=== PATIENT | male | born 1935 | race African-American/Black ===

== ENCOUNTER 2016-12-27 16:08 | Inpatient (IN) ==
[2016-12-27] MEDS ORDERED: SODIUM CHLORIDE 0.9% 500 ML IV STA (16:27)
--- NOTE | 2016-12-27 16:41 | Emergency Department Note ---
Miguel Ángel Oropeza Brittany, am scribing for, and in the presence of, Geo Rucker MD 16:37. Alka Oropeza James D, MD, personally performed the services described in this documentation, ascribed by Genoveva Del Rosario in my presence, and it is both accurate and complete [id number] . Arrival - Arrival Chief Complaint: Neuro Stated Complaint: left arm weakness and slurred speech ED Nursing Triage Note: pt complained of left arm weakness and slurred speech x 1 week. pt sent by ct nurse practictioner for concerns of stroke symptoms from last week. Mode of Arrival: Stretcher Limitations: No Limitations Source: Patient, Family Time Seen by Provider: 12/27/16 16:27 - History of Present Illness HPI Narrative: Patient is a 81 y/o male presenting to the ED by EMS with c/o weakness and slurred speech with an onset of a week. Patient's daughter states that his weakness is generalized but worse in the left arm. states that patient used to be able to transfer from bed to chair with ease, but for the past 4-5 days he has been having a lot of difficulty and needs assistance. reports that s/p second amputation he has not been able to ambulate with prosthetic device. Patient is assisted by , daughter, and aides. Patient notes that he is seen by PCP Vitor and Melting Operator Vitor. He reports that he does have a Defibrillator, but this has not fired recently. notes that patient is usually seen by the CT, where his amputations were performed. Patient denies any shortness of breath, chest pain, or urinary symptoms. 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 Patient has a past medical history of CHF, HTN, IDDM, Dyslipidemia, and Amputation's (Left BKA, Right AKA.) No other complaint/pain in the ED. Allergies/Adverse Reactions: Allergies Allergy/AdvReac Type Severity Reaction Status Date / Time No Known Allergies Allergy Unverified 03/27/15 08:06 Home Medications: Home Medications Medication Instructions Recorded Confirmed Type Aspirin [Ecotrin] 81 mg PO DAILY 03/27/15 11/22/15 History Atorvastatin [Lipitor] 80 mg PO BEDTIME 03/27/15 11/22/15 History Cetirizine HCl [ZyrTEC Cap] 10 mg PO DAILY 03/27/15 11/22/15 History Enalapril Tab [Vasotec Tab] 5 mg PO BID 03/27/15 11/22/15 History Furosemide Tab [Lasix Tab] 80 mg PO BID DIURETIC 03/27/15 11/22/15 History Gabapentin Cap/Tab [Neurontin 300 mg PO BID 03/27/15 11/22/15 History Cap/Tab] Insulin Glargine [Lantus] 15 unit SUBCUT BEDTIME 03/27/15 11/22/15 History LORazepam TAB [Ativan Tab] 0.5 mg PO TID PRN 03/27/15 11/22/15 History Magnesium Oxide 400 mg PO BEDTIME 03/27/15 11/22/15 History Magnesium Oxide 800 mg PO DAILY W/BREAKFAST 03/27/15 11/22/15 History Metoprolol Succinate 100 mg PO BEDTIME 03/27/15 11/22/15 History [place]-3 Fatty Acids/Fish Oil [Fish 1 each PO DAILY 03/27/15 11/22/15 History Oil 1,000 mg Softgel] Omeprazole [Prilosec] 20 mg PO DAILY 03/27/15 11/22/15 History Potassium Chloride [K-Tab ER] 20 meq PO DAILY 03/27/15 11/22/15 History Apixaban [Eliquis] 5 mg PO BID #60 tablet 11/26/15 Rx Review of System - Review of System 12 point system: reviewed and no additional remarkable complaints except as stated - Review of System Neurological: Present: as per HPI, weakness Medical,Surgical,& Family Hx - Medical History Cardio: History of: CHF, Hypertension, Valvular Heart Disease (is had bilateral lower extremity amputation at the CT) Endocrine: History of: Diabetes Mellitus (IDDM), Dyslipidemia Musculoskeletal: History of: Amputation (Lt BKA and Rt AKA) - Surgical History Cardiac Surgeries: Sugical HX of: Cardiac Catheterization, Cardiac Surgery (CABG ) Abdominal Surgeries: Surgical HX of: Cholecystectomy - Family History Family History: Reports;: Family Diabetes (mother of, cases of diabetes mellitus or heart disease.) - Social History Smoking Status: Former smoker Frequency of Alcohol Use: None Type of Drug Use: None Exam Vital Signs: Vital Signs Temperature 96.9 F L 03/15/17 16:10 Pulse Rate 61 12/27/16 16:10 Respiratory Rate 18 12/27/16 16:10 Blood Pressure 122/61 12/27/16 16:10 O2 Sat by Pulse Oximetry 97 12/27/16 16:10 GENERAL: This is a well-nourished well-developed chronically ill appearing black male in no apparent distress. VITAL SIGNS: Reviewed HEENT: Head is atraumatic and normocephalic. Pupils are equal round react to light. Extraocular movements are intact. Oropharynx is benign with moist mucous membranes. NECK: Neck is soft and supple without tenderness. There are no masses. There is no lymphadenopathy. LUNGS: Lungs are clear to auscultation. Chest rises symmetrically. There is no chest wall tenderness. CV: Heart is irregularly irregular without murmurs rubs or gallops. ABDOMEN: Abdomen is soft, nontender to palpation. There are no abdominal abnormal masses palpated. There is no organomegaly. Bowel sounds are present and active. SKIN: Skin is warm and dry. No rash. EXTREMITIES: Right AKA, left BKA. NEUROLOGIC: Awake alert and oriented 4. Cranial nerves II through XII are grossly intact. Motor is 3/5 in the left upper extremity 3-4/5 in the right upper extremity. Patient is 4-5/5 in both lower extremities. Course - Consultations Consultation #1: Discussed with hospitalist. Patient will be admitted to their service. Time: 18:05 Results - Labs CBC & BMP: 12/27/16 17:01 12/27/16 17:01 Lab Results: I have reviewed the patients labs Labs: Laboratory Tests 12/27/16 12/27/16 12/27/16 17:01 17:07 17:07 INR 1.3 Urine RBC <1 Urine WBC 1 Urine Opiates Screen Negative Ur Barbiturates Screen Negative Ur Phencyclidine Scrn Negative U Amphetamine/Methamph Negative U Benzodiazepines Scrn Negative U Cocaine Metab Screen Negative U Cannabinoids Screen Negative Laboratory Tests 12/27/16 17:01 Sodium 145 Potassium 3.5 Chloride 103 Carbon Dioxide 29 Anion Gap 16.5 H BUN 60 H Creatinine 2.30 H GFR Calculation 34 BUN/Creatinine Ratio 26.00 H Glucose 97 Calculated Osmolality 304.7 H Calcium 8.4 L Total Bilirubin 2.20 H AST 118 H ALT 127 H Alkaline Phosphatase 224 H Troponin I 1.050 H Total Protein 7.3 Albumin 2.7 L Globulin 4.6 H Albumin/Globulin Ratio 0.5 L - EKG EKG results: interpreted by ERMD - Impressions EKG: Atrial fib with a rate of 56, nonspecific ST-T wave changes, nonspecific intraventricular conduction delay. Normal axis. - Diagnostic Findings Procedure: Chest x-ray: image reviewed by me (Old median sternotomy, poor inspiration, AICD in place with leads in position. Elevated left hemidiaphragm. ), CT: image reviewed by me, report reviewed by me (CT head: No acute intracranial lesion or hemorrhage.) Disposition Clinical Impression: Stroke, Peripheral vascular disease, Diabetes mellitus, Inability to perform ADLs, Cardiomyopathy, Acute renal failure, Elevated troponin Case discussed with: patient Disposition: Still a Patient Condition: Stable
--- NOTE | 2016-12-27 16:53 | EKG Report ---
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
--- NOTE | 2016-12-27 16:58 | CT Report ---
Referring physician: Geo Rucker Exam: CT brain without contrast Date: 12/27/2016 Comparison: None Reason: Hemiparesis Technique: Axial images of the head were obtained without the use of contrast. Total DLP was 914.60 mGy*cm. Findings: No hydrocephalus or midline shift is present. There is no evidence of an acute infarction, recent intracranial hemorrhage or abnormal mass effect. Diffuse atrophy and cerebral hypodensities. Benign calcifications are noted. Vascular calcifications are present. The osseous structures appear intact. The mastoid air cells and visualized paranasal sinuses are clear. Impression: No acute intracranial abnormality is identified. Diffuse atrophy and microvascular disease. The CT exam was performed using one or more of the following dose reduction techniques: Automated exposure control and adjustment of the mA and/or kV according to patient size. PROCEDURE INTERPRETED AT [facility] DEPARTMENT OF RADIOLOGY Final Report Signed by: Dr. Alannah Mario
--- NOTE | 2016-12-27 17:09 | XRay Report ---
Portable chest Date: 12/27/2016 Clinical history: Cardiomegaly Comparison: 11/22/2015 Technique: Portable AP sitting chest Findings: Stable cardiomegaly with prior median sternotomy. Left subclavian atrial and ventricular AICD is stable in position. Localized eventration of the right hemidiaphragm with chronic elevation of the left hemidiaphragm. Residual atelectasis at the lung bases. Stable pneumomediastinum with degenerative changes. Impression: Cardiomegaly with left subclavian atrioventricular AICD. Chronic scarring in patient with prior median sternotomy. Stable relative elevation of the left hemidiaphragm with persistent atelectasis at the lung bases. PROCEDURE INTERPRETED AT [facility] DEPARTMENT OF RADIOLOGY Final Report Signed by: Dr. Alannah Mario
[2016-12-27 17:18] LABS: Basophils % 0.5 % (0.0-0.8); Eosinophils # 0.1 10*3/uL (0.0-0.87); Hematocrit 36.3 VOL% (42.0-52.0); Hemoglobin 11.2 GM/DL (14.0-18.0); Immature Granulocytes % 0.2 %; Immature Granulocytes Absolute 0.01 #; Mean Corpuscular HGB Conc 30.9 GM/DL (32-36); Mean Corpuscular Hemoglobin 29 PG (27-34); Mean Corpuscular Volume 92.4 FL (87-102); Mean Platelet Volume 12.1 FL (9.6-12.0); Monocytes # 0.7 10*3/uL (0.11-0.8); Monocytes % 12.4 % (1.7-12.7); Neutrophils % 67.9 % (38.7-73.9); Platelet Count 135 T/CUMM (130-400); Red Blood Count 3.93 MC/CUMM (3.8-5.5); Red Cell Distribution Width 15.5 % (9.3-17.3); White Blood Count 5.9 T/CUMM (4-12)
[2016-12-27 17:23] LABS: Apearance,Urine CLEAR (Clear); Bilirubin,Urine Negative (Negative); Blood, Urine Moderate mg/dL (Negative); Glucose,Urine (UA) Negative (Negative); Ketones,Urine Negative (Negative); Nitrite,Urine Negative (Negative); Protein,Urine 30 MG/DL; RBC,Urine <1 /HPF (0-4); Urine Color Straw (Yellow); Urine Specific Gravity 1.005 (1.001-1.035); Urine Urobilinogen < 2.0 EU/DL (0.2-1.0); WBC,Urine 1 /HPF (0-6)
[2016-12-27 17:31] LABS: INR 1.3; PT Patient Result 13.9 SECS; Partial Thromboplastin Time 32.5 SECS (0-40)
[2016-12-27 17:34] LABS: Barbiturates Screen,Urine Negative (Negative); Benzodiazepines Screen,Urine Negative (Negative); Cannabinoid Screen,Urine Negative (Negative); Opiate Screen,Urine Negative (Negative); Phencyclidine Screen,Urine Negative (Negative)
[2016-12-27 17:46] LABS: Alanine Aminotransferase 127 U/L (16-61); Albumin 2.7 G/DL (3.4-5.0); Alkaline Phosphatase 224 U/L (45-117); Aspartate Amino Transferase 118 U/L (0-37); Blood Urea Nitrogen 60 MG/DL (7-18); Calcium 8.4 MG/DL (8.5-10.1); Glucose 97 MG/DL (74-106); Osmolality,Calculated 304.7 MOS/KG (273-304); Potassium 3.5 MMOL/L (3.5-5.1); Sodium 145 MMOL/L (136-145); Total Protein 7.3 G/DL (6.4-8.3)
[2016-12-27] MEDS ORDERED: ENOXAPARIN 60 MG/0.6 ML SYRINGE SUBCUT STA (18:04)
[2016-12-27] MEDS ORDERED: ASPIRIN 325 MG TABLET PO STA (18:04)
[2016-12-27] MEDS ORDERED: ASPIRIN 325 MG TABLET ONE (18:16)
[2016-12-27] MEDS ORDERED: ENOXAPARIN 60 MG/0.6 ML SYRINGE ONE (18:16)
--- NOTE | 2016-12-27 18:24 | Ultrasound Report ---
Exam: Left upper extremity venous Doppler/duplex ultrasound Comparison: 11/22/2015 Clinical history: Left upper extremity edema Technique: Duplex scan of the left upper er extremity veins using th B- mode/grayscale imaging and Dopplers spectral analysis and color flow. Findings: There is normal flow in the left jugular, subclavian, axillary, cephalic and basilic veins. There is persistent occluding thrombus in one of the brachial veins. The other brachial vein is patent without thrombus. Collateral veins identified. Color-flow study and spectral analysis performed. 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 Similar findings were noted on previous exam. Ultrasound images were captured and stored. PROCEDURE INTERPRETED AT [facility] DEPARTMENT OF RADIOLOGY Final Report Signed by: Dr. Alannah Mario
--- NOTE | 2016-12-27 18:56 | Hospitalist History & Physical ---
Assessment and Plan (1) Peripheral vascular disease Status: Acute Current Visit: Yes (2) Diabetes mellitus Status: Acute Current Visit: Yes (3) Cardiomyopathy Status: Acute Current Visit: Yes (4) Acute renal failure Status: Acute Current Visit: Yes (5) Elevated troponin Status: Acute Assessment and plan: Our plan for this patient will be admitted to telemetry. We will trend out his cardiac enzymes. We will continue his home meds as appropriate. Will consult cardiology for their evaluation.Creatinine is gone up to 2.3 he is received a bolus in the emergency room will check labs in the morning to see if it is at its baseline which is between 1.5 and a 1.7. I think patient is just progressing with his general debility. He might benefit from some home health physical therapy. We will consult geriatric social worker and assistance on the front end. Current Visit: Yes History of Present Illness Chief complaint: Generalized weakness and slurred speech History of present illness: Mr. Mayorga is a 81 year old male with past medical history significant for diabetes congestive heart failure hypertension and double amputee who presents to our hospital emergency room today. Apparently patient had the symptoms been going on for a week to 2 weeks. Been having generalized weakness and slurred speech. He was seen by his nurse practitioner who makes home visits from the [place]. He felt like that he possibly had a stroke in the needed further evaluation. They brought him up to our hospital. Our CT scan did not show any acute intracranial process identified. There was no evidence of any stroke. Patient does have elevated troponins and I was consulted to admit him. Home Medications Medication Instructions Recorded Confirmed Type Aspirin [Ecotrin] 81 mg PO DAILY 03/27/15 12/27/16 History Atorvastatin [Lipitor] 80 mg PO BEDTIME 03/27/15 12/27/16 History Cetirizine HCl [ZyrTEC Cap] 10 mg PO DAILY 03/27/15 12/27/16 History Enalapril Tab [Vasotec Tab] 5 mg PO BID 03/27/15 12/27/16 History Furosemide Tab [Lasix Tab] 80 mg PO BID DIURETIC 03/27/15 12/27/16 History Insulin Glargine [Lantus] 15 unit SUBCUT BEDTIME 03/27/15 12/27/16 History Magnesium Oxide 420 mg PO BEDTIME 03/27/15 12/27/16 History Magnesium Oxide 800 mg PO DAILY W/BREAKFAST 03/27/15 12/27/16 History Metoprolol Succinate 100 mg PO BEDTIME 03/27/15 12/27/16 History Omeprazole [Prilosec] 20 mg PO DAILY 03/27/15 12/27/16 History Potassium Chloride [K-Tab ER] 20 meq PO DAILY 03/27/15 12/27/16 History Apixaban [Eliquis] 5 mg PO BID #60 tablet 11/26/15 12/27/16 Rx Albuterol/Ipratropium Neb [Duoneb] 3 ml RESP TX RT Q6H PRN 12/27/16 12/27/16 History Gabapentin Cap/Tab [Neurontin 300 mg PO QAM 12/27/16 12/27/16 History Cap/Tab] Gabapentin Cap/Tab [Neurontin 600 mg PO BEDTIME 12/27/16 12/27/16 History Cap/Tab] [place]-3 Fatty Acids [Fish Oil] 1,000 mg PO DAILY 12/27/16 12/27/16 History Allergies Allergy/AdvReac Type Severity Reaction Status Date / Time No Known Allergies Allergy Unverified 03/27/15 08:06 Medical,Surgical,& Family Hx - Medical History Cardio: History of: CHF, Hypertension, Valvular Heart Disease (is had bilateral lower extremity amputation at the [place]) Endocrine: History of: Diabetes Mellitus (IDDM), Dyslipidemia Musculoskeletal: History of: Amputation (Lt BKA and Rt AKA) - Surgical History Cardiac Surgeries: Sugical HX of: Cardiac Catheterization, Cardiac Surgery (CABG ) Abdominal Surgeries: Surgical HX of: Cholecystectomy - Family History Family History: Reports;: Family Diabetes (mother of, cases of diabetes mellitus or heart disease.) - Social History Smoking Status: Former smoker Frequency of Alcohol Use: None Type of Drug Use: None 12 point system: reviewed and no additional remarkable complaints except as stated Exam - Constitutional Vitals: Period Temp Pulse Resp BP Sys/Mendez Pulse Ox Last 24 Hr 96.9 F-96.9 F 60-61 18-18 110-122/61-65 97 General appearance: normal weight, no acute distress - Head Head exam: Present: normal inspection - Eye Eye exam: Present: EOMI Pupils: Present: ROGER - ENT ENT exam: Present: normal exam - Neck Neck exam: Present: normal inspection - Respiratory Respiratory exam: Present: clear to auscultation bilaterally - Cardiovascular Cardiovascular exam: Present: irregular rhythm - GI/Abdominal GI/Abdominal exam: Present: normal bowel sounds - Extremities Exam Extremities exam: Present: normal inspection - Back Exam Back exam: Present: normal inspection - Neurological Exam Neurological exam: Present: alert - Psychiatric Psychiatric exam: Present: normal affect, normal mood - Skin Skin exam: Present: normal color Results - Labs CBC & BMP: 12/27/16 17:01 12/27/16 17:01 Quality Measures - Stroke Onset of Symptoms Date: 12/22/16 Symptom Onset Unknown: No
[2016-12-27] MEDS ORDERED: GLUCAGON 1 MG VIAL IM PRN (19:00)
[2016-12-27] MEDS ORDERED: ONDANSETRON 4 MG/2 ML VIAL IV PRN (19:00)
[2016-12-27] MEDS ORDERED: DEXTROSE 50% 25 GM/50 ML VIAL IV PRN (19:00)
[2016-12-27] MEDS ORDERED: ACETAMINOPHEN 325 MG TABLET PO PRN (19:00)
[2016-12-27] MEDS ORDERED: ALBUTEROL/IPRATROPIUM 3 ML NEB RESP TX PRN (19:04)
[2016-12-27] MEDS ORDERED: ATORVASTATIN 40 MG TABLET PO SCH (21:00)
[2016-12-27] MEDS: APIXABAN 5 MG TABLET PO SCH (22:19)
[2016-12-27] MEDS: ENALAPRIL 2.5 MG TABLET PO SCH (22:19)
[2016-12-27] MEDS: GABAPENTIN 600 MG TABLET PO SCH (22:19)
[2016-12-27] MEDS: INSULIN REGULAR 100 UNIT/ML SUBCUT SCH (22:21)
[2016-12-27] MEDS: METOPROLOL SUCCINATE XL 100 MG TABLET PO SCH (22:21)
[2016-12-28 00:53] LABS: Basophils % 0.6 % (0.0-0.8); Eosinophils # 0.1 10*3/uL (0.0-0.87); Eosinophils % 2.6 % (0.00-10.9); Hematocrit 36.5 VOL% (42.0-52.0); Hemoglobin 11.2 GM/DL (14.0-18.0); Immature Granulocytes % 0.2 %; Immature Granulocytes Absolute 0.01 #; Lymphocytes % 19.6 % (21.2-54.2); Mean Corpuscular HGB Conc 30.7 GM/DL (32-36); Mean Corpuscular Hemoglobin 28 PG (27-34); Mean Corpuscular Volume 92.2 FL (87-102); Mean Platelet Volume 12.4 FL (9.6-12.0); Monocytes # 0.7 10*3/uL (0.11-0.8); Monocytes % 13.4 % (1.7-12.7); Neutrophils # 3.4 10*3/uL (1.4-7.4); Neutrophils % 63.6 % (38.7-73.9); Platelet Count 141 T/CUMM (130-400); Red Blood Count 3.96 MC/CUMM (3.8-5.5); Red Cell Distribution Width 15.6 % (9.3-17.3); White Blood Count 5.3 T/CUMM (4-12)
[2016-12-28 01:21] LABS: Calcium 8.2 MG/DL (8.5-10.1); Osmolality,Calculated 312.4 MOS/KG (273-304); Potassium 3.6 MMOL/L (3.5-5.1)
--- NOTE | 2016-12-28 09:15 | Cardiology Consult Note ---
<Rosa Hwang E - Last Filed: 12/28/16 09:20> Assessment and Plan - Time spent with patient Time spent with patient: Greater than 30 minutes (1) Ischemic cardiomyopathy Status: Chronic Assessment and plan: See plan of care listed below Current Visit: Yes (2) ICD (implantable cardioverter-defibrillator) in place Status: Chronic Assessment and plan: See plan of care listed below Current Visit: Yes (3) Hypertension Status: Chronic Assessment and plan: See plan of care listed below Current Visit: Yes (4) Dyslipidemia Status: Chronic Assessment and plan: See plan of care listed below Current Visit: Yes (5) Debilitated patient Status: Chronic Assessment and plan: See plan of care listed below Current Visit: Yes (6) Risk for falls Status: Chronic Assessment and plan: See plan of care listed below Current Visit: Yes (7) Right carotid bruit Status: Acute Assessment and plan: See plan of care listed below Current Visit: Yes (8) Peripheral vascular disease Status: Chronic Assessment and plan: See plan of care listed below Current Visit: Yes (9) Acute renal failure superimposed on stage 3 chronic kidney disease Status: Acute Assessment and plan: See plan of care listed below Current Visit: No (10) Diabetes mellitus Status: Chronic Assessment and plan: See plan of care listed below Current Visit: No Qualifiers: Diabetes mellitus type: type 2 Diabetes mellitus complication detail: with other circulatory complications Qualified Code(s): E11.59 - Type 2 diabetes mellitus with other circulatory complications (11) Elevated liver enzymes Status: Chronic Assessment and plan: See plan of care listed below Current Visit: No (12) Peripheral vascular disease Status: Chronic Assessment and plan: See plan of care listed below Current Visit: Yes (13) Elevated troponin Status: Chronic Assessment and plan: See plan of care listed below Current Visit: Yes (14) CAD (coronary artery disease) Status: Chronic Assessment and plan: See plan of care listed below Current Visit: Yes History of Present Illness - Data of Consult Patient: known to practice within the last 3 years Consult date: 12/28/16 Requesting Physician: Nelda Nelson - Consult Narrative Reason for consult: elevated troponin, known CAD History of present illness: Mr. Mayorga is a 81 year old male routinely followed by Dr. Aggarwal. Was last seen in his cardiology clinic September 2016. Risk factors include: Age, known coronary artery disease (status post CABG 1998 Dr. Trivedi), hypertension, dyslipidemia, diabetes, peripheral vascular disease (status post left carotid endarterectomy, bilateral amputee), history of ICD implantation (previous EFs 15% - 30%), CHF, atrial fibrillation (Eliquis for stroke prevention), chronic renal insufficiency. Patient was brought to the emergency department at [facility] after being evaluated by his home health nurse practitioner who is concerned he may have had a stroke. He underwent CT which did not show any acute intracranial process, no evidence of stroke. He has a history of DVT left brachial vein. He underwent venous ultrasound which confirmed chronic DVT. Basically, he is here also for general malaise. Cardiology was consulted for concern of elevated troponin. Patient denies chest pain, heaviness or tightness. Mrs. Mayorga states he has never had chest pain in the past. He denies shortness of breath. Upon review however of his troponin, he has a chronically elevated troponin. 3 troponin draws have been noted to be 1.040-1.090. There is been basically no change in his troponin levels. His kidney function has worsened since the last time he was here. And although his troponins were elevated in the past, history creatinine was not as high. EKG does not reveal an acute event. Family members are present in believe that he would not do well with stress testing or cardiac catheterization though I do not think this is a cardiac event. Especially, given the fact he has had no chest pain, heaviness, tightness or shortness of breath we will continue with medical management. Echocardiogram will be obtained, records from Dr. Adler office. His liver enzymes are elevated as well. I will hold any lipid-lowering agents at this time. He does have a right-sided carotid bruit and will order carotid ultrasound. ASSESSMENT/PLAN: 1. ELEVATED TROPONIN -continue cycle cardiac biomarkers. The troponins are flat, not resembling NSTEMI. EKG does not reveal an acute event as compared to prior EKGs. Medical management will ensue. I will obtain an echocardiogram. CT of head did not reveal acute event. Patient does have some upper left-sided weakness with pushing and I believe this to be new. He may benefit from MRI and will defer to attending. Certainly CVA can also contribute to elevated troponin. 2. KNOWN CAD S/P CABG - continue current plan of care. 3. HYPERTENSION -holding BINDU inhibitor, currently on beta-radha. We will add Norvasc for blood pressure coverage until creatinine improves and we can reintroduce his BINDU inhibitor 4. DYSLIPIDEMIA -taking atorvastatin 80 mg each evening. Will hold for now as he does have elevated liver enzymes at this time. 5. PVD -continue aspirin 6. ELEVATED LIVER ENZYMES -we will hold his atorvastatin and repeat liver function studies tomorrow. 7. ACUTE ON CHRONIC RENAL INSUFFICIENCY (STAGE III) -we will hold his BINDU inhibitor this morning and continue to follow his creatinine. 8. CHRONIC LEFT BRACHIAL DVT -Eliquis for history of left brachial DVT. 9. ATRIAL FIBRILLATION -Eliquis for stroke prevention 10. DEBILITATION -his is a very good job of taking care of him at home. Will ask that an overhead bar be added to his bed in order to use for self manipulation 11. FATIGUE - denies symptoms of sleep apnea. Continue to follow accordingly 12. ISCHEMIC CARDIOMYOPATHY -echo 13. RIGHT CAROTID BRUIT -carotid ultrasound 14. FALLS RISK - Protocol to prevent falls in place CC: Nelda Nelson MD - Home Medications and Allergies Home Medications: Home Medications Medication Instructions Recorded Confirmed Type Aspirin [Ecotrin] 81 mg PO DAILY 03/27/15 12/28/16 History Atorvastatin [Lipitor] 80 mg PO BEDTIME 03/27/15 12/28/16 History Cetirizine HCl [ZyrTEC Cap] 10 mg PO DAILY 03/27/15 12/28/16 History Enalapril Tab [Vasotec Tab] 5 mg PO BID 03/27/15 12/28/16 History Furosemide Tab [Lasix Tab] 80 mg PO BID DIURETIC 03/27/15 12/28/16 History Insulin Glargine [Lantus] 15 unit SUBCUT BEDTIME 03/27/15 12/28/16 History Magnesium Oxide 420 mg PO BEDTIME 03/27/15 12/28/16 History Magnesium Oxide 800 mg PO DAILY W/BREAKFAST 03/27/15 12/28/16 History Metoprolol Succinate 100 mg PO BEDTIME 03/27/15 12/28/16 History Omeprazole [Prilosec] 20 mg PO DAILY 03/27/15 12/28/16 History Potassium Chloride [K-Tab ER] 20 meq PO DAILY 03/27/15 12/28/16 History Apixaban [Eliquis] 5 mg PO BID #60 tablet 11/26/15 12/28/16 Rx Albuterol/Ipratropium Neb [Duoneb] 3 ml RESP TX RT Q6H PRN 12/27/16 12/28/16 History Gabapentin Cap/Tab [Neurontin 300 mg PO QAM 12/27/16 12/28/16 History Cap/Tab] Gabapentin Cap/Tab [Neurontin 600 mg PO BEDTIME 12/27/16 12/28/16 History Cap/Tab] [place]-3 Fatty Acids [Fish Oil] 1,000 mg PO DAILY 12/27/16 12/28/16 History Allergies/Adverse Reactions: Allergies Allergy/AdvReac Type Severity Reaction Status Date / Time No Known Allergies Allergy Unverified 03/27/15 08:06 Review of systems: REVIEW OF SYSTEMS: - Constitutional Constitutional: Present: Fatigue. Absent: syncope, anorexia, night sweats - EENT Eyes: Absent: blurry vision, loss of vision, diplopia Ears: Absent: decreased hearing, ear pain, ear discharge - Cardiovascular Cardiovascular: Denies chest pain with movement, dyspnea on exertion, edema, palpitations. Absent: chest pain with deep breath - Respiratory Respiratory: Denies ARREOLA, cough. Absent: wheezing, hemoptysis, change in phlegm color - Gastrointestinal Gastrointestinal: Denies constipation. Absent: abdominal pain, hematemesis, hematochezia, melena, change in bowel habits, nausea - Genitourinary Genitourinary: Absent: difficulty urinating, dysuria, urinary hesitancy, flank pain - Musculoskeletal Musculoskeletal: Present: back pain Absent: joint swelling, muscle cramps, muscle weakness - Neurological Neurological: Left-sided weakness arm intermittent Absent: dizziness, hemiparesis - Psychiatric Psychiatric: Absent: anxiety, depression, difficulty concentrating - Endocrine Endocrine: Present: fatigue. Absent: cold intolerance, heat intolerance, polyuria, polyphagia, polydipsia - Hematologic/Lymphatic Hematologic/Lymphatic: Present: easy bruising. Absent: easy bleeding -Integumentary Integumentary: Absent: lesions, rashes, skin breakdown Medical,Surgical,& Family Hx - Medical History Cardio: History of: Cardiac Dysrhythmia (Atrial fibrillation), CHF, CAD, Hypertension, Pacemaker (ICD), PVD (Carotid disease, PVD of lower extremities), Valvular Heart Disease (is had bilateral lower extremity amputation at the [facility]) Endocrine: History of: Diabetes Mellitus (IDDM), Dyslipidemia Musculoskeletal: History of: Amputation (Lt BKA and Rt AKA) - Surgical History Cardiac Surgeries: Sugical HX of: Cardiac Catheterization, Cardiac Surgery (CABG ) Abdominal Surgeries: Surgical HX of: Cholecystectomy - Family History Family History: Reports;: Family Diabetes (mother of, cases of diabetes mellitus or heart disease.) - Social History Smoking Status: Former smoker Have you smoked in the last 12 months: No Frequency of Alcohol Use: None Type of Drug Use: None Marital Status: Lives With:: Spouse Functional capacity: bed bound Physical Examination Vital Signs Temp Pulse Resp BP Pulse Ox 96.9 F L 61 18 110/65 97 12/27/16 16:10 12/27/16 16:10 12/27/16 16:10 12/27/16 16:10 12/27/16 16:10 General: [Appears well with no apparent distress.] [Pleasant and cooperative. ] [Appears comfortable.] HEENT: [Bilateral arcus noted, normocephalic, atraumatic. Mucous membranes moist. No jaundice noted. Conjunctiva moist and clear, sclerae anicteric] Neck: No JVD/HJR, no thyromegaly or lymphadenopathy noted. Right carotid bruit Cardiac: [Irregularly irregular rhythm, controlled rate.] [No murmur rub or gallop.] Well-healed sternotomy scar. Lungs: [Clear to auscultation without accessory muscle use to assist the respiratory pattern.] Not requiring oxygen Abdomen: Soft, bowel sounds normoactive. Nontender and nondistended. No abdominal bruit or thrill noted. No masses noted. Musculoskeletal: No fluid collection. Decreased range of motion is noted. Extremities: No clubbing, cyanosis noted. [ No edema noted.] Upper extremity pulses 2+. Capillary refill less than 3 seconds. Skin: No unusual lesions or rashes. No skin breakdown appreciated. Neuro: Awake, alert and oriented 3. Left arm weakness noted intermittently. No essential tremor is appreciated. Result/EKG - Labs CBC & BMP: 12/28/16 00:24 12/28/16 00:24 Lab Results: I have reviewed the past 24 hour labs Labs: Laboratory Results - last 24 hr 12/27/16 12/27/16 12/28/16 22:32 22:54 00:24 WBC RBC Hgb Hct MCV MCH MCHC RDW Plt Count MPV Neut % (Auto) Lymph % (Auto) [place] % (Auto) Eos % (Auto) Baso % (Auto) Neut # (Auto) Lymph # (Auto) [place] # (Auto) Eos # (Auto) Baso # (Auto) Immature Gran % Nucleated RBC % Immature Gran # Nucleated RBCs # Sodium Potassium Chloride Carbon Dioxide Anion Gap BUN Creatinine GFR Calculation BUN/Creatinine Ratio Glucose POC Glucose 105 Calculated Osmolality Calcium Total Creatine Kinase 478 H 477 H CK-MB (CK-2) 2.8 2.9 Troponin I 1.090 H 1.040 H 12/28/16 12/28/16 12/28/16 00:24 00:24 07:08 WBC 5.3 RBC 3.96 Hgb 11.2 L Hct 36.5 L MCV 92.2 MCH 28 MCHC 30.7 L RDW 15.6 Plt Count 141 MPV 12.4 H Neut % (Auto) 63.6 Lymph % (Auto) 19.6 L [place] % (Auto) 13.4 H Eos % (Auto) 2.6 Baso % (Auto) 0.6 Neut # (Auto) 3.4 Lymph # (Auto) 1.0 L [place] # (Auto) 0.7 Eos # (Auto) 0.1 Baso # (Auto) 0.0 Immature Gran % 0.2 Nucleated RBC % 0.0 Immature Gran # 0.01 Nucleated RBCs # 0.00 Sodium 147 H Potassium 3.6 Chloride 102 Carbon Dioxide 29 Anion Gap 19.6 H BUN 61 H Creatinine 2.30 H GFR Calculation 34 BUN/Creatinine Ratio 26.00 H Glucose 167 H POC Glucose 276 H Calculated Osmolality 312.4 H Calcium 8.2 L Total Creatine Kinase CK-MB (CK-2) Troponin I - Diagnostic Findings Procedure: Chest x-ray: report reviewed by me, CT: report reviewed by me, Ultrasound: report reviewed by me - EKG EKG results: interpreted by me EKG shows: atrial fibrillation Quality Measures - Stroke Onset of Symptoms Date: 12/22/16 Symptom Onset Unknown: No <Arsalan Smith - Last Filed: 12/28/16 14:28> History of Present Illness - Consult Narrative History of present illness: Although the patient has significant cardiac disease, he really does not have any cardiac symptoms. His home health nurse sent him to the hospital for generalized weakness and a questionable "slow speech". He has some swelling, pain and associated weakness in his left arm. Apparently he's had a DVT in this area before. As noted, he has no interest in stress test or heart cath. And given the fact that he is not really having any cardiac specific symptoms at this time I agree with conservative management from a cardiac standpoint. I have seen, interviewed, examined the patient and reviewed his chart and discussed the case with the mid-level provider and agree with the plan as outlined in the note. CC: Nelda Nelson MD Physical Examination Vital Signs Temp Pulse Resp BP Pulse Ox 96.9 F L 61 18 110/65 97 12/27/16 16:10 12/27/16 16:10 12/27/16 16:10 12/27/16 16:10 12/27/16 16:10 Result/EKG - Labs CBC & BMP: 12/28/16 09:57 12/28/16 00:24 Labs: Laboratory Results - last 24 hr 12/27/16 12/27/16 12/28/16 22:32 22:54 00:24 WBC RBC Hgb Hct MCV MCH MCHC RDW Plt Count MPV Neut % (Auto) Lymph % (Auto) [place] % (Auto) Eos % (Auto) Baso % (Auto) Neut # (Auto) Lymph # (Auto) [place] # (Auto) Eos # (Auto) Baso # (Auto) Immature Gran % Nucleated RBC % Immature Gran # Nucleated RBCs # Sodium Potassium Chloride Carbon Dioxide Anion Gap BUN Creatinine GFR Calculation BUN/Creatinine Ratio Glucose POC Glucose 105 Calculated Osmolality Calcium Total Bilirubin Direct Bilirubin Indirect Bilirubin AST ALT Alkaline Phosphatase Total Creatine Kinase 478 H 477 H CK-MB (CK-2) 2.8 2.9 Troponin I 1.090 H 1.040 H Total Protein Albumin Free T4 TSH 3rd Generation 12/28/16 12/28/16 12/28/16 00:24 00:24 07:08 WBC 5.3 RBC 3.96 Hgb 11.2 L Hct 36.5 L MCV 92.2 MCH 28 MCHC 30.7 L RDW 15.6 Plt Count 141 MPV 12.4 H Neut % (Auto) 63.6 Lymph % (Auto) 19.6 L [place] % (Auto) 13.4 H Eos % (Auto) 2.6 Baso % (Auto) 0.6 Neut # (Auto) 3.4 Lymph # (Auto) 1.0 L [place] # (Auto) 0.7 Eos # (Auto) 0.1 Baso # (Auto) 0.0 Immature Gran % 0.2 Nucleated RBC % 0.0 Immature Gran # 0.01 Nucleated RBCs # 0.00 Sodium 147 H Potassium 3.6 Chloride 102 Carbon Dioxide 29 Anion Gap 19.6 H BUN 61 H Creatinine 2.30 H GFR Calculation 34 BUN/Creatinine Ratio 26.00 H Glucose 167 H POC Glucose 276 H Calculated Osmolality 312.4 H Calcium 8.2 L Total Bilirubin Direct Bilirubin Indirect Bilirubin AST ALT Alkaline Phosphatase Total Creatine Kinase CK-MB (CK-2) Troponin I Total Protein Albumin Free T4 TSH 3rd Generation 12/28/16 12/28/16 12/28/16 09:57 09:57 09:57 WBC 5.5 RBC 3.73 L Hgb 10.8 L Hct 35.6 L MCV 95.4 MCH 29 MCHC 30.3 L RDW 15.6 Plt Count 134 MPV 12.3 H Neut % (Auto) 62.7 Lymph % (Auto) 20.6 L [place] % (Auto) 13.4 H Eos % (Auto) 2.4 Baso % (Auto) 0.5 Neut # (Auto) 3.5 Lymph # (Auto) 1.1 L [place] # (Auto) 0.7 Eos # (Auto) 0.1 Baso # (Auto) 0.0 Immature Gran % 0.4 Nucleated RBC % 0.0 Immature Gran # 0.02 Nucleated RBCs # 0.00 Sodium Potassium Chloride Carbon Dioxide Anion Gap BUN Creatinine GFR Calculation BUN/Creatinine Ratio Glucose POC Glucose Calculated Osmolality Calcium Total Bilirubin 1.50 H Direct Bilirubin 0.5 H Indirect Bilirubin 1.0 AST 139 H ALT 147 H Alkaline Phosphatase 226 H Total Creatine Kinase CK-MB (CK-2) Troponin I Total Protein 6.8 Albumin 2.6 L Free T4 1.17 TSH 3rd Generation 0.765 12/28/16 11:51 WBC RBC Hgb Hct MCV MCH MCHC RDW Plt Count MPV Neut % (Auto) Lymph % (Auto) [place] % (Auto) Eos % (Auto) Baso % (Auto) Neut # (Auto) Lymph # (Auto) [place] # (Auto) Eos # (Auto) Baso # (Auto) Immature Gran % Nucleated RBC % Immature Gran # Nucleated RBCs # Sodium Potassium Chloride Carbon Dioxide Anion Gap BUN Creatinine GFR Calculation BUN/Creatinine Ratio Glucose POC Glucose 285 H Calculated Osmolality Calcium Total Bilirubin Direct Bilirubin Indirect Bilirubin AST ALT Alkaline Phosphatase Total Creatine Kinase CK-MB (CK-2) Troponin I Total Protein Albumin Free T4 TSH 3rd Generation
[2016-12-28] MEDS: POTASSIUM CHLORIDE 20 MEQ TABLET PO SCH (09:37)
[2016-12-28] MEDS: OMEGA 3 ACID ETHYL ESTERS 1 GM CAPSULE PO SCH (09:38)
[2016-12-28] MEDS: MAGNESIUM OXIDE 400 MG TABLET PO SCH (09:38)
[2016-12-28] MEDS: ASPIRIN EC 81 MG TABLET PO SCH (09:38)
[2016-12-28] MEDS: FUROSEMIDE 80 MG TABLET PO SCH ×2 (09:39→17:32)
[2016-12-28] MEDS: CETIRIZINE 10 MG TABLET PO SCH (09:39)
[2016-12-28] MEDS: APIXABAN 5 MG TABLET PO SCH ×2 (09:39→22:09)
[2016-12-28] MEDS: PANTOPRAZOLE 40 MG TABLET PO SCH (09:40)
[2016-12-28] MEDS: GABAPENTIN 600 MG TABLET PO SCH ×2 (09:40→22:09)
[2016-12-28] MEDS: INSULIN REGULAR 100 UNIT/ML SUBCUT SCH ×4 (09:50→22:09)
[2016-12-28] MEDS ORDERED: amLODIPine 5 MG TABLET PO SCH (10:00)
[2016-12-28 10:03] LABS: Basophils % 0.5 % (0.0-0.8); Eosinophils # 0.1 10*3/uL (0.0-0.87); Eosinophils % 2.4 % (0.00-10.9); Hematocrit 35.6 VOL% (42.0-52.0); Hemoglobin 10.8 GM/DL (14.0-18.0); Immature Granulocytes % 0.4 %; Immature Granulocytes Absolute 0.02 #; Lymphocytes # 1.1 10*3/uL (1.4-4.0); Lymphocytes % 20.6 % (21.2-54.2); Mean Corpuscular HGB Conc 30.3 GM/DL (32-36); Mean Corpuscular Hemoglobin 29 PG (27-34); Mean Corpuscular Volume 95.4 FL (87-102); Mean Platelet Volume 12.3 FL (9.6-12.0); Monocytes # 0.7 10*3/uL (0.11-0.8); Monocytes % 13.4 % (1.7-12.7); Neutrophils # 3.5 10*3/uL (1.4-7.4); Neutrophils % 62.7 % (38.7-73.9); Platelet Count 134 T/CUMM (130-400); Red Blood Count 3.73 MC/CUMM (3.8-5.5); Red Cell Distribution Width 15.6 % (9.3-17.3); White Blood Count 5.5 T/CUMM (4-12)
[2016-12-28] MEDS: ENALAPRIL 2.5 MG TABLET PO SCH (10:16)
[2016-12-28 10:53] LABS: Albumin 2.6 G/DL (3.4-5.0); Bilirubin,Direct 0.5 MG/DL (0.0-0.20); Bilirubin,Total 1.5 MG/DL (0.2-1.0); Total Protein 6.8 G/DL (6.4-8.3)
[2016-12-28 10:55] LABS: Free T4 (Free Thyroxine) 1.17 NG/DL (0.76-1.46); Thyroid Stimulating Hormone 0.765 uIU/ml (0.358-3.74)
--- NOTE | 2016-12-28 13:14 | Ultrasound Report ---
History: Right-sided carotid bruit Date: 12/28/2016 Study: Ultrasound carotid duplex Comparison exam: No previous similar study available Color Doppler, wave form analysis, and grayscale analysis of the cervical carotid arteries was performed. There is a moderate to large amount of partially calcified plaque in the distal common carotid arteries, extending to either carotid bulb.. Waveform analysis shows proper directional flow of the cervical carotid arteries. There is antegrade flow in either vertebral artery. The distal right ICA measures 4.3 mm diameter; the left measures 6.3 mm diameter. Peak systolic velocities are as follows: Right CCA 198 cm/s Right ICA 163 cm/s Right ECA 227 cm/s Right vertebral occluded by ultrasound Right IC/CC ratio 0.8 Left CCA 187 cm/s Left ICA 146 cm/s Left ECA 140 cm/s Left vertebral 77 cm/s Left IC/CC ratio 0.8 There is 16-49 % diameter reduction narrowing of either internal carotid artery using indirect NASCET criteria. Elevated peak systolic velocity in the distal common carotid arteries would suggest potential hemodynamically significant stenosis at this level. There is decreased flow above the baseline in the distal right ICA, which could signify distal internal carotid artery stenosis at the skull base level. Ultrasound images were captured and archived. Impression: Increased peak systolic velocities in the distal common carotid arteries could signify underlying common carotid artery stenosis of significance. Consider further evaluation with CTA of the neck. Waveform changes of the distal right ICA during diastole suggest potential distal ICA stenosis, perhaps of the skull base level. No right vertebral artery flow identified PROCEDURE INTERPRETED AT [facility] DEPARTMENT OF RADIOLOGY Final Report Signed by: Dr. Radha Anaya
--- NOTE | 2016-12-28 14:14 | Hospitalist Progress Note ---
Assessment and Plan (1) Slurred speech Status: Acute Assessment and plan: Echo pending, unable to obtain MRI. Right carotid may have severe distal stenosis. Unable to quantify due to CKD and contrast contra indication. Unable to eval with MRI. Continue medical management. Current Visit: Yes (2) Elevated troponin Status: Chronic Assessment and plan: History of CABG, no complaints of chest pain. Cardiology involved. Current Visit: Yes (3) CAD (coronary artery disease) Status: Chronic Current Visit: Yes (4) Congestive heart failure Status: Acute Assessment and plan: Continue medical management. Current Visit: No (5) Atrial fibrillation Status: Acute Assessment and plan: Continue medical management. Current Visit: Yes (6) Peripheral angiopathy Status: Acute Current Visit: No (7) Deep vein thrombosis (DVT) of brachial vein of left upper extremity Status: Acute Assessment and plan: Continue Elquis. Current Visit: Yes Hospitalist: Subjective Interval history: Admitted for evaluation of slurred speech and swollen LUE. Found to have a DVT. Unable to obtain MRI due to pacemaker. Exam - Constitutional Vitals: Period Temp Pulse Resp BP Sys/Mendez Pulse Ox Last 24 Hr 96.8 F-98.6 F 52-79 18-20 102-135/38-56 90-100 General appearance: no acute distress - Head Head exam: Present: normocephalic, atraumatic - Eye Eye exam: Present: EOMI Pupils: Present: ROGER - ENT ENT exam: Present: normal exam - Neck Neck exam: Present: normal inspection - Respiratory Respiratory exam: Present: clear to auscultation bilaterally. Absent: rhonchi, wheezes - Cardiovascular Cardiovascular exam: Present: regular rate and rhythm. Absent: gallop, rubs, systolic murmur - GI/Abdominal GI/Abdominal exam: Present: normal bowel sounds, soft. Absent: distended, firm , guarding, tenderness, rebound - Extremities Exam Extremities exam: Present: edema, other (B AKA, swollen LUE.). Absent: calf tenderness - Neurological Exam Neurological exam: Present: alert, CN II-XII intact (upper extremity strength 5/ 5 B) Results - Labs CBC & BMP: 12/28/16 09:57 12/28/16 00:24 Lab Results: I have reviewed the past 24 hour labs Quality Measures - Stroke Onset of Symptoms Date: 12/22/16 Symptom Onset Unknown: No
--- NOTE | 2016-12-28 21:34 | ECHO Report ---
Kenton Mayorga Exam Date: 12/28/2016 10:26 Referring Physician: Technologist: Vera Spencer RDCS Age: 81 Ht (in): Wt (lb): Gender: M Exam Location: [facility] Echo Indications: Ischemic cardiomyopathy, Presence of automatic (implantable) cardiac defibrillator, Essential (primary) hypertension, Debilitated patient, Dyslipidemia, Elevated liver enzymes, CAD with previous CABG, Diabetes, Elevated troponin, Right carotid bruit, Peripheral vascular disease, unspecified, Chronic kidney disease, stage 3 (moderate), Acute kidney failure, unspecified BP: / HR: Rhythm: Sinus Technical Quality: Very technically difficult study IMPRESSIONS Very technically difficult study. Left ventricular ejection fraction is estimated at 25-30 %. The right atrium is mildly enlarged. Moderately increased left atrial size. Thickened mitral valve. Mild aortic valve sclerosis without stenosis. Trace to mild tricuspid valve regurgitation. MEASUREMENTS (Male / Female) Normal Values 2D ECHO LV Diastolic Diameter PLAX 4.4 cm 4.2 - 5.9 / 3.9 - 5.3 cm LV Systolic Diameter PLAX 4.3 cm LV Fractional Shortening PLAX 0.5 % IVS Diastolic Thickness 1.1 cm 0.6 - 1.0 / 0.6 - 0.9 cm LVPW Diastolic Thickness 1.0 cm 0.6 - 1.0 / 0.6 - 0.9 cm RV Internal Dim ED PLAX 4.4 cm Aortic Root Diameter 3.8 cm LA Systolic Diameter LX 5.5 cm 3.0 - 4.0 / 2.7 - 3.8 cm DOPPLER TR Peak Velocity 375.0 cm/s TR Peak Gradient 56.3 mmHg FINDINGS Left Ventricle Normal left ventricular cavity size. Mild left ventricular hypertrophy. Left ventricular ejection fraction is estimated at 25-30 %. Right Ventricle The right ventricle is normal in size and function. Right Atrium The right atrium is mildly enlarged. Left Atrium Moderately increased left atrial size. Mitral Valve Thickened mitral valve. No mitral valve regurgitation. Aortic Valve Mild aortic valve sclerosis without stenosis Tricuspid Valve Morphologically normal tricuspid valve. Trace to mild tricuspid valve regurgitation. Tricuspid regurgitation velocities suggest a PAP of 66 mmHg. Pulmonic Valve Morphologically normal pulmonic valve. Trace pulmonary valve regurgitation. Pericardium Normal pericardium without effusion. Aorta Normal ascending aorta dimension. Arsalan Smith (Electronically Signed) Final Date: 28 December 2016 21:33
[2016-12-28] MEDS: METOPROLOL SUCCINATE XL 100 MG TABLET PO SCH (22:09)
[2016-12-29 05:11] LABS: Basophils % 0.5 % (0.0-0.8); Eosinophils # 0.2 10*3/uL (0.0-0.87); Eosinophils % 2.7 % (0.00-10.9); Hematocrit 34.9 VOL% (42.0-52.0); Hemoglobin 10.4 GM/DL (14.0-18.0); Immature Granulocytes % 0.3 %; Immature Granulocytes Absolute 0.02 #; Lymphocytes % 14.5 % (21.2-54.2); Mean Corpuscular HGB Conc 29.8 GM/DL (32-36); Mean Corpuscular Hemoglobin 29 PG (27-34); Mean Corpuscular Volume 95.6 FL (87-102); Mean Platelet Volume 11.7 FL (9.6-12.0); Monocytes # 0.8 10*3/uL (0.11-0.8); Monocytes % 11.8 % (1.7-12.7); Neutrophils # 4.7 10*3/uL (1.4-7.4); Neutrophils % 70.2 % (38.7-73.9); Platelet Count 138 T/CUMM (130-400); Red Blood Count 3.65 MC/CUMM (3.8-5.5); Red Cell Distribution Width 15.7 % (9.3-17.3); White Blood Count 6.6 T/CUMM (4-12)
[2016-12-29 05:43] LABS: Calcium 8.4 MG/DL (8.5-10.1); Magnesium 2.5 MG/DL (1.8-2.4); Potassium 3.5 MMOL/L (3.5-5.1)
[2016-12-29 05:47] LABS: Albumin 2.7 G/DL (3.4-5.0); Bilirubin,Total 2.2 MG/DL (0.2-1.0); Calcium 8.7 MG/DL (8.5-10.1); Osmolality,Calculated 307.7 MOS/KG (273-304); Potassium 3.5 MMOL/L (3.5-5.1); Total Protein 7.1 G/DL (6.4-8.3)
[2016-12-29] MEDS: amLODIPine 5 MG TABLET PO SCH (09:37)
[2016-12-29] MEDS: POTASSIUM CHLORIDE 20 MEQ TABLET PO SCH (09:37)
[2016-12-29] MEDS: GABAPENTIN 600 MG TABLET PO SCH ×2 (09:37→20:46)
[2016-12-29] MEDS: OMEGA 3 ACID ETHYL ESTERS 1 GM CAPSULE PO SCH (09:37)
[2016-12-29] MEDS: ASPIRIN EC 81 MG TABLET PO SCH (09:37)
[2016-12-29] MEDS: PANTOPRAZOLE 40 MG TABLET PO SCH (09:37)
[2016-12-29] MEDS: MAGNESIUM OXIDE 400 MG TABLET PO SCH (09:38)
[2016-12-29] MEDS: APIXABAN 5 MG TABLET PO SCH ×2 (09:39→20:46)
[2016-12-29] MEDS: CETIRIZINE 10 MG TABLET PO SCH (09:39)
[2016-12-29] MEDS: INSULIN REGULAR 100 UNIT/ML SUBCUT SCH ×4 (09:39→22:09)
[2016-12-29] MEDS: FUROSEMIDE 80 MG TABLET PO SCH ×2 (09:39→16:27)
--- NOTE | 2016-12-29 13:25 | Cardiology Progress Note ---
Assessment and Plan (1) Tremor Status: Acute Assessment and plan: The patient's reports trembling in his hands bilaterally. There were interested in possibly having a neurology consultation. I will defer this to the admitting physician. Current Visit: Yes (2) Slurred speech Status: Acute Assessment and plan: This was his presenting symptom. It seems that this is largely resolved. Unable to get MRI. The patient's family was wondering about a neurology consult. Current Visit: Yes (3) Elevated troponin Status: Chronic Assessment and plan: The patient has a chronic mild stable elevation of troponin with no symptoms of angina. The patient and family do not want any sort of aggressive workup performed. We will simply manage him medically. I have no new cardiac recommendations at this time. Please call over the weekend if any acute/new cardiac issues arise or if I can be of assistance. Current Visit: Yes (4) Deep vein thrombosis (DVT) of brachial vein of left upper extremity Status: Acute Assessment and plan: He is on anticoagulation with Eliquis Current Visit: Yes (5) Atrial fibrillation Status: Acute Assessment and plan: This is well controlled at this time. No changes in management is needed. Current Visit: Yes (6) Cardiomyopathy Status: Acute Assessment and plan: Clinically this is stable. Current Visit: Yes (7) Right carotid bruit Status: Acute Current Visit: Yes (8) CAD (coronary artery disease) Status: Chronic Assessment and plan: No anginal symptoms. 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 The patient denies any cardiac symptoms such as chest pain, palpitations, or dyspnea. He was discovered to have a left upper extremity deep venous thrombosis which is being treated with Eliquis. The patient and complain of some trembling in his hands which is new. He has no new complaints today. Current Medications Acetaminophen (Tylenol Tab) 650 mg PO Q4H PRN PRN Reason: fever, headache/body aches Hydrocodone Bitart/Acetaminophen ([place] 5-325) 1 tablet PO Q4H PRN PRN Reason: Pain Moderate (4-7) Last Admin: 12/28/16 17:33 Dose: 1 tablet Albuterol/Ipratropium (Duoneb) 3 ml RESP TX RT Q6H PRN PRN Reason: Shortness of Breath/Wheezing Amlodipine Besylate (Norvasc) 5 mg PO DAILY [facility] Last Admin: 12/29/16 09:37 Dose: 5 mg Apixaban (Eliquis) 5 mg PO BID [facility] Last Admin: 12/29/16 09:39 Dose: 5 mg Aspirin () 81 mg PO DAILY [facility] Last Admin: 12/29/16 09:37 Dose: 81 mg Cetirizine HCl (Zyrtec Tab) 10 mg PO DAILY [facility] Last Admin: 12/29/16 09:39 Dose: 10 mg Dextrose/Water (D50) 25 gm IV PRN PRN PRN Reason: Hypoglycemia with IV access Furosemide (Lasix Tab) 80 mg PO BID DIURETIC [facility] Last Admin: 12/29/16 09:39 Dose: 80 mg Gabapentin (Neurontin Cap/Tab) 300 mg PO QAM [facility] Last Admin: 12/29/16 09:37 Dose: 300 mg Gabapentin (Neurontin Cap/Tab) 600 mg PO BEDTIME [facility] Last Admin: 12/28/16 22:09 Dose: 600 mg Glucagon () 1 mg IM PRN PRN PRN Reason: Hypoglycemia w/o IV access Insulin Human Regular (Humulin R) 0 unit SUBCUT ACHS [facility] PRN Reason: Protocol Last Admin: 12/29/16 09:39 Dose: 2 unit Magnesium Oxide () 800 mg PO DAILY W/BREAKFAST [facility] Last Admin: 12/29/16 09:38 Dose: 800 mg Metoprolol Succinate (Toprol Xl) 100 mg PO BEDTIME [facility] Last Admin: 12/28/16 22:09 Dose: 100 mg [id number] Ethyl Esters (Lovaza) 1 gm PO DAILY [facility] Last Admin: 12/29/16 09:37 Dose: 1 gm Ondansetron HCl (Zofran Inj) 4 mg IV Q4H PRN PRN Reason: Nausea Pantoprazole Sodium (Protonix Tab) 40 mg PO DAILY [facility] Last Admin: 12/29/16 09:37 Dose: 40 mg Potassium Chloride (K Dur) 20 meq PO DAILY [facility] Last Admin: 12/29/16 09:37 Dose: 20 meq Exam (Progress Note) - Constitutional Vitals: Period Temp Pulse Resp BP Sys/Mendez Pulse Ox Last 24 Hr 96.8 F-97.9 F 51-77 16-20 116-134/59-66 90-96 Exam: General: Frail, elderly, chronically ill-appearing, somewhat drowsy HEENT: Normocephalic, atraumatic Neck: Supple Neck, Midline Trachea Cardiac: Irregular Rhythm, 2 out of 6 Murmur, no gallop, no rub Lungs: Clear to Ascultation, No Wheeze, Rales, Rhonchi Neuro: Cranial Nerve 2-12 Intact, diffuse generalized weakness Abdomen: Soft, Active Bowel Sounds, No Masses, No Pulsations/Bruits Skin: Normal color, no rash Extremities: Status post bilateral lower extremity amputation, mild left upper extremity edema Musculoskeletal: No acute abnormality noted Psychiatric: The patient is a bit drowsy but does not appear anxious or depressed. Result/EKG - Labs CBC & BMP: 12/29/16 04:56 12/29/16 04:56 Lab Results: I have reviewed the past 24 hour labs Labs: Laboratory Results - last 24 hr 12/28/16 12/28/16 12/29/16 16:22 19:50 04:56 WBC RBC Hgb Hct MCV MCH MCHC RDW Plt Count MPV Neut % (Auto) Lymph % (Auto) [place] % (Auto) Eos % (Auto) Baso % (Auto) Neut # (Auto) Lymph # (Auto) [place] # (Auto) Eos # (Auto) Baso # (Auto) Immature Gran % Nucleated RBC % Immature Gran # Nucleated RBCs # Sodium 143 Potassium 3.5 Chloride 99 Carbon Dioxide 34 H Anion Gap 13.5 BUN 64 H Creatinine 2.50 H GFR Calculation 31 BUN/Creatinine Ratio 25.00 H Glucose 128 H POC Glucose 329 H 345 H Calculated Osmolality 304.0 Calcium 8.4 L Magnesium 2.5 H Total Bilirubin AST ALT Alkaline Phosphatase Total Protein Albumin Globulin Albumin/Globulin Ratio 12/29/16 12/29/16 12/29/16 04:56 04:56 07:16 WBC 6.6 RBC 3.65 L Hgb 10.4 L Hct 34.9 L MCV 95.6 MCH 29 MCHC 29.8 L RDW 15.7 Plt Count 138 MPV 11.7 Neut % (Auto) 70.2 Lymph % (Auto) 14.5 L [place] % (Auto) 11.8 Eos % (Auto) 2.7 Baso % (Auto) 0.5 Neut # (Auto) 4.7 Lymph # (Auto) 1.0 L [place] # (Auto) 0.8 Eos # (Auto) 0.2 Baso # (Auto) 0.0 Immature Gran % 0.3 Nucleated RBC % 0.0 Immature Gran # 0.02 Nucleated RBCs # 0.00 Sodium 145 Potassium 3.5 Chloride 100 Carbon Dioxide 31 Anion Gap 17.5 H BUN 63 H Creatinine 2.50 H GFR Calculation 31 BUN/Creatinine Ratio 25.00 H Glucose 129 H POC Glucose 187 H Calculated Osmolality 307.7 H Calcium 8.7 Magnesium Total Bilirubin 2.20 H AST 154 H ALT 176 H Alkaline Phosphatase 214 H Total Protein 7.1 Albumin 2.7 L Globulin 4.4 H Albumin/Globulin Ratio 0.6 L 12/29/16 11:32 WBC RBC Hgb Hct MCV MCH MCHC RDW Plt Count MPV Neut % (Auto) Lymph % (Auto) [place] % (Auto) Eos % (Auto) Baso % (Auto) Neut # (Auto) Lymph # (Auto) [place] # (Auto) Eos # (Auto) Baso # (Auto) Immature Gran % Nucleated RBC % Immature Gran # Nucleated RBCs # Sodium Potassium Chloride Carbon Dioxide Anion Gap BUN Creatinine GFR Calculation BUN/Creatinine Ratio Glucose POC Glucose 251 H Calculated Osmolality Calcium Magnesium Total Bilirubin AST ALT Alkaline Phosphatase Total Protein Albumin Globulin Albumin/Globulin Ratio - EKG EKG results: interpreted by md Quality Measures - Stroke Onset of Symptoms Date: 12/22/16 Symptom Onset Unknown: No
--- NOTE | 2016-12-29 16:59 | Hospitalist Progress Note ---
Assessment and Plan - Time spent with patient Time spent with patient: Greater than 30 minutes (1) Slurred speech Status: Acute Assessment and plan: Unable to obtain MRI. Right carotid may have severe distal stenosis. Unable to quantify due to CKD and contrast contra indication. Unable to eval with MRI. Continue medical management. Current Visit: Yes (2) Elevated troponin Status: Chronic Assessment and plan: History of CABG, no complaints of chest pain. Cardiology involved. Current Visit: Yes (3) CAD (coronary artery disease) Status: Chronic Current Visit: Yes (4) Congestive heart failure Status: Acute Assessment and plan: Continue medical management. Current Visit: No (5) Atrial fibrillation Status: Acute Assessment and plan: Continue medical management. Current Visit: Yes (6) Peripheral angiopathy Status: Acute Current Visit: No (7) Deep vein thrombosis (DVT) of brachial vein of left upper extremity Status: Acute Assessment and plan: Continue Elquis. Current Visit: Yes Hospitalist: Subjective Interval history: No complaints denies any trembling at this time. Family thinks it was actually just due to muscle weakness. Exam - Constitutional Vitals: Period Temp Pulse Resp BP Sys/Mendez Pulse Ox Last 24 Hr 96.9 F-98.6 F 51-77 16-20 116-134/55-66 90-96 General appearance: no acute distress - Head Head exam: Present: normocephalic, atraumatic - Eye Eye exam: Present: EOMI Pupils: Present: ROGER - ENT ENT exam: Present: normal exam - Neck Neck exam: Present: normal inspection - Respiratory Respiratory exam: Present: clear to auscultation bilaterally. Absent: rhonchi, wheezes - Cardiovascular Cardiovascular exam: Present: regular rate and rhythm. Absent: gallop, rubs, systolic murmur - GI/Abdominal GI/Abdominal exam: Present: normal bowel sounds, soft. Absent: distended, firm , guarding, tenderness, rebound - Extremities Exam Extremities exam: Present: other (Bilateral AKA) Results - Labs CBC & BMP: 12/29/16 04:56 12/29/16 04:56 Lab Results: I have reviewed the past 24 hour labs Quality Measures - Stroke Onset of Symptoms Date: 12/22/16 Symptom Onset Unknown: No
[2016-12-29] MEDS: METOPROLOL SUCCINATE XL 100 MG TABLET PO SCH (20:46)
[2016-12-30] MEDS: PANTOPRAZOLE 40 MG TABLET PO SCH (08:45)
[2016-12-30] MEDS: FUROSEMIDE 80 MG TABLET PO SCH ×2 (08:45→16:39)
[2016-12-30] MEDS: APIXABAN 5 MG TABLET PO SCH ×2 (08:46→20:49)
[2016-12-30] MEDS: MAGNESIUM OXIDE 400 MG TABLET PO SCH (08:46)
[2016-12-30] MEDS: GABAPENTIN 600 MG TABLET PO SCH ×2 (08:46→20:49)
[2016-12-30] MEDS: POTASSIUM CHLORIDE 20 MEQ TABLET PO SCH (08:46)
[2016-12-30] MEDS: CETIRIZINE 10 MG TABLET PO SCH (08:46)
[2016-12-30] MEDS: ASPIRIN EC 81 MG TABLET PO SCH (08:46)
[2016-12-30] MEDS: amLODIPine 5 MG TABLET PO SCH (08:46)
[2016-12-30] MEDS: OMEGA 3 ACID ETHYL ESTERS 1 GM CAPSULE PO SCH (08:46)
[2016-12-30] MEDS: INSULIN REGULAR 100 UNIT/ML SUBCUT SCH ×4 (08:50→22:41)
--- NOTE | 2016-12-30 15:39 | Hospitalist Progress Note ---
Assessment and Plan - Time spent with patient Time spent with patient: Greater than 30 minutes (1) Slurred speech Status: Acute Assessment and plan: Resolved. Unable to obtain MRI. Right carotid may have severe distal stenosis. Unable to quantify due to CKD and contrast contra indication. Unable to eval with MRI. Continue medical management. Current Visit: Yes (2) Elevated troponin Status: Chronic Assessment and plan: History of CABG, no complaints of chest pain. Cardiology involved. Current Visit: Yes (3) CAD (coronary artery disease) Status: Chronic Current Visit: Yes (4) Congestive heart failure Status: Acute Assessment and plan: Continue medical management. Current Visit: No (5) Atrial fibrillation Status: Acute Assessment and plan: Continue medical management. Current Visit: Yes (6) Peripheral angiopathy Status: Acute Current Visit: No (7) Deep vein thrombosis (DVT) of brachial vein of left upper extremity Status: Acute Assessment and plan: Continue Elquis. Current Visit: Yes Hospitalist: Subjective Interval history: No complaints, no overnight events. Exam - Constitutional Vitals: Period Temp Pulse Resp BP Sys/Mendez Pulse Ox Last 24 Hr 97.7 F-99.1 F 64-69 16-24 120-134/54-83 91-94 General appearance: no acute distress - Head Head exam: Present: normocephalic, atraumatic - Eye Eye exam: Present: EOMI Pupils: Present: ROGER - ENT ENT exam: Present: normal exam - Neck Neck exam: Present: normal inspection - Respiratory Respiratory exam: Present: clear to auscultation bilaterally. Absent: rhonchi, wheezes - Cardiovascular Cardiovascular exam: Present: regular rate and rhythm. Absent: gallop, rubs, systolic murmur - GI/Abdominal GI/Abdominal exam: Present: normal bowel sounds, soft. Absent: distended, firm , guarding, tenderness, rebound - Extremities Exam Extremities exam: Present: other (Bilateral AKA) Results - Labs CBC & BMP: 12/29/16 04:56 12/29/16 04:56 Lab Results: I have reviewed the past 24 hour labs Quality Measures - Stroke Onset of Symptoms Date: 12/22/16 Symptom Onset Unknown: No
[2016-12-30] MEDS ORDERED: POLYETHYLENE GLYCOL POWDER 17 GM PACK PO PRN (17:16)
[2016-12-30] MEDS: METOPROLOL SUCCINATE XL 100 MG TABLET PO SCH (20:49)
[2016-12-31 05:26] LABS: Basophils % 0.5 % (0.0-0.8); Eosinophils # 0.3 10*3/uL (0.0-0.87); Eosinophils % 4.8 % (0.00-10.9); Hematocrit 34.7 VOL% (42.0-52.0); Hemoglobin 10.6 GM/DL (14.0-18.0); Immature Granulocytes % 0.3 %; Immature Granulocytes Absolute 0.02 #; Lymphocytes # 1.2 10*3/uL (1.4-4.0); Lymphocytes % 18.8 % (21.2-54.2); Mean Corpuscular HGB Conc 30.5 GM/DL (32-36); Mean Corpuscular Hemoglobin 29 PG (27-34); Mean Corpuscular Volume 93.5 FL (87-102); Mean Platelet Volume 11.6 FL (9.6-12.0); Monocytes # 0.9 10*3/uL (0.11-0.8); Monocytes % 14.4 % (1.7-12.7); Neutrophils # 3.9 10*3/uL (1.4-7.4); Neutrophils % 61.2 % (38.7-73.9); Platelet Count 152 T/CUMM (130-400); Red Blood Count 3.71 MC/CUMM (3.8-5.5); Red Cell Distribution Width 15.7 % (9.3-17.3); White Blood Count 6.4 T/CUMM (4-12)
[2016-12-31 05:54] LABS: Calcium 8.5 MG/DL (8.5-10.1); Osmolality,Calculated 299.1 MOS/KG (273-304); Potassium 3.6 MMOL/L (3.5-5.1)
[2016-12-31] MEDS: INSULIN REGULAR 100 UNIT/ML SUBCUT SCH ×4 (09:34→21:32)
[2016-12-31] MEDS: ASPIRIN EC 81 MG TABLET PO SCH (09:35)
[2016-12-31] MEDS: GABAPENTIN 600 MG TABLET PO SCH ×2 (09:35→21:19)
[2016-12-31] MEDS: APIXABAN 5 MG TABLET PO SCH ×2 (09:35→21:19)
[2016-12-31] MEDS: MAGNESIUM OXIDE 400 MG TABLET PO SCH (09:35)
[2016-12-31] MEDS: FUROSEMIDE 80 MG TABLET PO SCH ×2 (09:36→16:39)
[2016-12-31] MEDS: amLODIPine 5 MG TABLET PO SCH (09:36)
[2016-12-31] MEDS: CETIRIZINE 10 MG TABLET PO SCH (09:36)
[2016-12-31] MEDS: POTASSIUM CHLORIDE 20 MEQ TABLET PO SCH (09:36)
[2016-12-31] MEDS: OMEGA 3 ACID ETHYL ESTERS 1 GM CAPSULE PO SCH (09:36)
[2016-12-31] MEDS: PANTOPRAZOLE 40 MG TABLET PO SCH (09:36)
--- NOTE | 2016-12-31 14:34 | Hospitalist Progress Note ---
Assessment and Plan - Time spent with patient Time spent with patient: Greater than 30 minutes (1) Slurred speech Status: Acute Assessment and plan: Resolved. Unable to obtain MRI. Right carotid may have severe distal stenosis. Unable to quantify due to CKD and contrast contra indication. Unable to eval with MRI. Continue medical management. Current Visit: Yes (2) Elevated troponin Status: Chronic Assessment and plan: History of CABG, no complaints of chest pain. Cardiology involved. Current Visit: Yes (3) CAD (coronary artery disease) Status: Chronic Current Visit: Yes (4) Congestive heart failure Status: Acute Assessment and plan: Continue medical management. Current Visit: No (5) Atrial fibrillation Status: Acute Assessment and plan: Continue medical management. Current Visit: Yes (6) Peripheral angiopathy Status: Acute Current Visit: No (7) Deep vein thrombosis (DVT) of brachial vein of left upper extremity Status: Acute Assessment and plan: Continue Elquis. Current Visit: Yes (8) Effusion, left elbow Status: Acute Assessment and plan: We will consult orthopedics for a joint aspiration. Current Visit: Yes Hospitalist: Subjective Interval history: C/o continued pain in the left elbow with reduced range of motion. No overnight events. Exam - Constitutional Vitals: Period Temp Pulse Resp BP Sys/Mendez Pulse Ox Last 24 Hr 97.3 F-97.9 F 51-66 18-28 122-136/33-62 91-94 General appearance: no acute distress - Head Head exam: Present: normocephalic, atraumatic - Eye Eye exam: Present: EOMI Pupils: Present: ROGER - ENT ENT exam: Present: normal exam - Neck Neck exam: Present: normal inspection - Respiratory Respiratory exam: Present: clear to auscultation bilaterally. Absent: rhonchi, wheezes - Cardiovascular Cardiovascular exam: Present: regular rate and rhythm. Absent: gallop, rubs, systolic murmur - GI/Abdominal GI/Abdominal exam: Present: normal bowel sounds, soft. Absent: distended, firm , guarding, tenderness, rebound - Extremities Exam Extremities exam: Present: normal inspection, other (On further inspection of the left arm it appears there is an effusion over the left elbow. No erythema however it is very tender to palpation.). Absent: calf tenderness, edema Results - Labs CBC & BMP: 12/31/16 04:42 12/31/16 04:42 Lab Results: I have reviewed the past 24 hour labs Quality Measures - Stroke Onset of Symptoms Date: 12/22/16 Symptom Onset Unknown: No
--- NOTE | 2016-12-31 16:45 | XRay Report ---
History: Effusion and tenderness Date: 12/31/2016 Study: Left elbow 2 views Comparison exam: November 22, 2015 There is soft tissue swelling dorsal to the olecranon and distal humerus. No acute fracture seen. There is mild osteophyte formation of the elbow. Impression: Degenerative changes. Soft tissue swelling PROCEDURE INTERPRETED AT [facility] DEPARTMENT OF RADIOLOGY Final Report Signed by: Dr. Radha Anaya
[2016-12-31] MEDS: METOPROLOL SUCCINATE XL 100 MG TABLET PO SCH (21:36)
[2017-01-01 05:42] LABS: Basophils % 0.5 % (0.0-0.8); Eosinophils # 0.3 10*3/uL (0.0-0.87); Eosinophils % 5.1 % (0.00-10.9); Hematocrit 34.8 VOL% (42.0-52.0); Hemoglobin 10.9 GM/DL (14.0-18.0); Immature Granulocytes % 0.3 %; Immature Granulocytes Absolute 0.02 #; Lymphocytes # 1.1 10*3/uL (1.4-4.0); Lymphocytes % 17.2 % (21.2-54.2); Mean Corpuscular HGB Conc 31.3 GM/DL (32-36); Mean Corpuscular Hemoglobin 29 PG (27-34); Mean Corpuscular Volume 91.8 FL (87-102); Mean Platelet Volume 11.8 FL (9.6-12.0); Monocytes # 0.7 10*3/uL (0.11-0.8); Monocytes % 11.1 % (1.7-12.7); Neutrophils # 4.3 10*3/uL (1.4-7.4); Neutrophils % 65.8 % (38.7-73.9); Platelet Count 176 T/CUMM (130-400); Red Blood Count 3.79 MC/CUMM (3.8-5.5); Red Cell Distribution Width 15.6 % (9.3-17.3); White Blood Count 6.5 T/CUMM (4-12)
[2017-01-01 06:11] LABS: Calcium 8.6 MG/DL (8.5-10.1); Osmolality,Calculated 300.5 MOS/KG (273-304); Potassium 3.8 MMOL/L (3.5-5.1)
[2017-01-01] MEDS ORDERED: methylPREDNISolone SOD SUC 40 MG/1 ML VIAL IV ONE (07:13)
--- NOTE | 2017-01-01 07:21 | Orthopedic Consult Note ---
History of Present Illness Chief complaint: Left elbow pain and swelling History of present illness: Mr. Mayorga is a 81 year old male was chronically ill. Patient is complaining of posterior left elbow pain and swelling. He has not had any history of injury. The patient does have a history of a chronic left upper extremity DVT. He is on Eliquis. He is a bilateral above-knee amputee. Alert and oriented Range of motion Elbow limited from 40-110. The patient has pain at the endpoints of motion but no pain in mid range. No pain with forearm rotation. He has a small olecranon bursal effusion with a palpable olecranon enthesophyte. No erythema. Bursa is tender. Skin, sensation, motor his pulses are intact to his left hand. Radiographs left elbow show osteophyte formation and loss of joint space particularly in the radiocapitellar joint. He has a large olecranon enthesophyte. The patient has a normal white count. The patient has been afebrile since admission. Impression: Left elbow osteoarthritis Left olecranon bursitis Plan: Check uric acid, sedimentation rate and C-reactive protein. Apply compressive dressing to left elbow. Since the patient is on Eliquis, hold off on aspiration for now. I am going to try a test dose of Solu-Medrol to see how he responds. Patient with his chronic kidney disease is a poor candidate for NSAIDs. Home Medications Medication Instructions Recorded Confirmed Type Aspirin [Ecotrin] 81 mg PO DAILY 03/27/15 12/28/16 History Atorvastatin [Lipitor] 80 mg PO BEDTIME 03/27/15 12/28/16 History Cetirizine HCl [ZyrTEC Cap] 10 mg PO DAILY 03/27/15 12/28/16 History Enalapril Tab [Vasotec Tab] 5 mg PO BID 03/27/15 12/28/16 History Furosemide Tab [Lasix Tab] 80 mg PO BID DIURETIC 03/27/15 12/28/16 History Insulin Glargine [Lantus] 15 unit SUBCUT BEDTIME 03/27/15 12/28/16 History Magnesium Oxide 420 mg PO BEDTIME 03/27/15 12/28/16 History Magnesium Oxide 800 mg PO DAILY W/BREAKFAST 03/27/15 12/28/16 History Metoprolol Succinate 100 mg PO BEDTIME 03/27/15 12/28/16 History Omeprazole [Prilosec] 20 mg PO DAILY 03/27/15 12/28/16 History Potassium Chloride [K-Tab ER] 20 meq PO DAILY 03/27/15 12/28/16 History Apixaban [Eliquis] 5 mg PO BID #60 tablet 11/26/15 12/28/16 Rx Albuterol/Ipratropium Neb [Duoneb] 3 ml RESP TX RT Q6H PRN 12/27/16 12/28/16 History Gabapentin Cap/Tab [Neurontin 300 mg PO QAM 12/27/16 12/28/16 History Cap/Tab] Gabapentin Cap/Tab [Neurontin 600 mg PO BEDTIME 12/27/16 12/28/16 History Cap/Tab] [place]-3 Fatty Acids [Fish Oil] 1,000 mg PO DAILY 12/27/16 12/28/16 History Allergies Allergy/AdvReac Type Severity Reaction Status Date / Time No Known Allergies Allergy Unverified 03/27/15 08:06 12 point system: reviewed and no additional remarkable complaints except as stated Medical,Surgical,& Family Hx - Medical History Cardio: History of: Cardiac Dysrhythmia (Atrial fibrillation), CHF, CAD, Hypertension, Pacemaker (ICD), PVD (Carotid disease, PVD of lower extremities), Valvular Heart Disease (is had bilateral lower extremity amputation at the MD) Endocrine: History of: Diabetes Mellitus (IDDM), Dyslipidemia Musculoskeletal: History of: Amputation (Lt BKA and Rt AKA) - Surgical History Cardiac Surgeries: Sugical HX of: Cardiac Catheterization, Cardiac Surgery (CABG ) Abdominal Surgeries: Surgical HX of: Cholecystectomy - Family History Family History: Reports;: Family Diabetes (mother of, cases of diabetes mellitus or heart disease.) - Social History Smoking Status: Former smoker Frequency of Alcohol Use: None Type of Drug Use: None Exam - Constitutional Vitals: Period Temp Pulse Resp BP Sys/Mendez Pulse Ox Last 24 Hr 97.5 F-98.7 F 61-79 18-20 122-137/33-64 90-97 Results - Labs CBC & BMP: 01/01/17 05:07 01/01/17 05:08 Assessment and Plan (1) Olecranon bursitis of left elbow Status: Acute Current Visit: Yes (2) Osteoarthritis of elbow Status: Acute Current Visit: Yes Qualifiers: Osteoarthritis type: primary Laterality: left Qualified Code(s): M19.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
[2017-01-01 07:29] LABS: Uric Acid 12.9 MG/DL (3.5-7.2)
[2017-01-01] MEDS: INSULIN REGULAR 100 UNIT/ML SUBCUT SCH ×4 (10:03→21:10)
[2017-01-01] MEDS: OMEGA 3 ACID ETHYL ESTERS 1 GM CAPSULE PO SCH (10:05)
[2017-01-01] MEDS: GABAPENTIN 600 MG TABLET PO SCH ×2 (10:06→20:37)
[2017-01-01] MEDS: amLODIPine 5 MG TABLET PO SCH (10:06)
[2017-01-01] MEDS: ASPIRIN EC 81 MG TABLET PO SCH (10:07)
[2017-01-01] MEDS: APIXABAN 5 MG TABLET PO SCH ×2 (10:08→20:36)
[2017-01-01] MEDS: POTASSIUM CHLORIDE 20 MEQ TABLET PO SCH (10:08)
[2017-01-01] MEDS: MAGNESIUM OXIDE 400 MG TABLET PO SCH (10:08)
[2017-01-01] MEDS: FUROSEMIDE 80 MG TABLET PO SCH ×2 (10:09→15:52)
[2017-01-01] MEDS: CETIRIZINE 10 MG TABLET PO SCH (10:09)
[2017-01-01] MEDS: PANTOPRAZOLE 40 MG TABLET PO SCH (10:09)
[2017-01-01] MEDS ORDERED: TUBERCULIN SKIN TEST 0.1 ML SYRINGE INTRADERM ONE (12:40)
--- NOTE | 2017-01-01 12:45 | Case Mgmt Physician Query Form ---
TB Signs and Symptoms Screening ([place]) INSTRUCTIONS: To be completed annually on residents/staff with a significant Tuberculin Skin Test (TST) upon admission/hire or a prior significant TST. To be completed on all staff at hire. Please respond to each listed symptom with an (X) in either the "YES" or "NO" box. Do you currently have any of the following symptoms: YES NO ( ) ( x) A cough If yes, is it: ( ) Productive ( ) Non- productive ( ) (x ) Hemoptysis (spitting up blood) ( ) ( x) Chest pains ( ) (x ) Weight Loss ( ) (x ) Fever ( ) (x ) Night Sweats ( ) (x ) Weakness ( ) (x ) Loss of Appetite ( ) (x ) Difficulty Breathing If you answered YES" to any of the above questions, how long have symptoms been present? Comments: If you have any questions, please contact me. thank you, Efren Elizabeth RN Case Manager O:[phone] P: [phone] F: [phone] [email or web address]
--- NOTE | 2017-01-01 13:19 | Cardiology Progress Note ---
Assessment and Plan - Time spent with patient Time spent with patient: Greater than 30 minutes (1) Ischemic cardiomyopathy Status: Chronic Assessment and plan: See plan of care listed below Current Visit: Yes (2) ICD (implantable cardioverter-defibrillator) in place Status: Chronic Assessment and plan: See plan of care listed below Current Visit: Yes (3) Hypertension Status: Chronic Assessment and plan: See plan of care listed below Current Visit: Yes (4) Dyslipidemia Status: Chronic Assessment and plan: See plan of care listed below Current Visit: Yes (5) Debilitated patient Status: Chronic Assessment and plan: See plan of care listed below Current Visit: Yes (6) Risk for falls Status: Chronic Assessment and plan: See plan of care listed below Current Visit: Yes (7) Right carotid bruit Status: Chronic Assessment and plan: See plan of care listed below Current Visit: Yes (8) Peripheral vascular disease Status: Chronic Assessment and plan: See plan of care listed below Current Visit: Yes (9) Acute renal failure superimposed on stage 3 chronic kidney disease Status: Chronic Assessment and plan: See plan of care listed below Current Visit: No (10) Diabetes mellitus Status: Chronic Assessment and plan: See plan of care listed below Current Visit: No Qualifiers: Diabetes mellitus type: type 2 Diabetes mellitus complication detail: with other circulatory complications Qualified Code(s): E11.59 - Type 2 diabetes mellitus with other circulatory complications (11) Elevated liver enzymes Status: Chronic Assessment and plan: See plan of care listed below Current Visit: No (12) Peripheral vascular disease Status: Chronic Assessment and plan: See plan of care listed below Current Visit: Yes (13) Elevated troponin Status: Chronic Assessment and plan: See plan of care listed below Current Visit: Yes (14) CAD (coronary artery disease) Status: Chronic Assessment and plan: See plan of care listed below Current Visit: Yes Cardiology - PN: Subj Interval history: Mr. Mayorga is a 81 year old male routinely followed by Dr. Aggarwal. Was last seen in his cardiology clinic September 2016 and follows up routinely every six months per his . Risk factors include: age, known coronary artery disease (status post CABG 1998 Dr. Trivedi), hypertension, dyslipidemia, diabetes, peripheral vascular disease (status post left carotid endarterectomy, bilateral amputee), history of ICD implantation (previous EFs 15% - 30%), CHF, atrial fibrillation ( Eliquis for stroke prevention), chronic renal insufficiency. Patient was brought to the emergency department at [facility] December 27, 2016 after being evaluated by his home health nurse practitioner who is concerned he may have had a stroke. He underwent CT which did not show any acute intracranial process, no evidence of stroke. Unable to undergo MRI. He has a history of DVT left brachial vein. He underwent venous ultrasound which confirmed chronic DVT. He is being treated with Eliquis. Basically, he is here also for general malaise. Cardiology was consulted for concern of elevated troponin. Patient's troponin is chronically elevated and he has denied chest pain, heaviness or tightness. , at the bedside, agrees with this. The patient and family have expressed the desire for no invasive work-up of his cardiac condition at this time. Over the weekend, patient has improved. He is less lethargic, waking and is pleasant. He has had no significant change in his cardiac condition. From a cardiology standpoint, there is very little to offer at this point. We will sign off and follow along only if reconsulted. He will keep his follow-up appoint with Dr. Aggarwal. ASSESSMENT/PLAN: 1. ELEVATED TROPONIN -chronic elevation of troponin. This is not a myocardial infarction. Medical management status. At this point, we will sign off and follow along only if reconsulted. 2. KNOWN CAD S/P CABG - continue current plan of care. 3. HYPERTENSION -holding BINDU inhibitor due to fear of worsening renal insufficiency. Continue on beta-radha. 4. DYSLIPIDEMIA -Avoiding lipid lowering agent due to elevated LFTs. 5. PVD -continue aspirin 6. ELEVATED LIVER ENZYMES -holding cholesterol lowering agent. 7. ACUTE ON CHRONIC RENAL INSUFFICIENCY (STAGE III) -continue current plan of care. 8. CHRONIC LEFT BRACHIAL DVT -Eliquis for history of left brachial DVT. 9. ATRIAL FIBRILLATION -Eliquis for stroke prevention 10. DEBILITATION - his is doing a very good job of taking care of him at home. Uses overhead trapeze bar. 11. FATIGUE - Improved. 12. ISCHEMIC CARDIOMYOPATHY - unchanged. Severely reduced LVEF. Continue current plan of care. 13. RIGHT CAROTID BRUIT - see carotid US report. 14. FALLS RISK - Protocol to prevent falls in place Exam (Progress Note) - Constitutional Vitals: Period Temp Pulse Resp BP Sys/Mendez Pulse Ox Last 24 Hr 96.7 F-98.7 F 62-79 18-20 120-137/53-64 90-98 Exam: General: [Appears well with no apparent distress.] [Pleasant and cooperative. ] [Appears comfortable.] HEENT: [Bilateral arcus noted, normocephalic, atraumatic. Mucous membranes moist. No jaundice noted. Conjunctiva moist and clear, sclerae anicteric] Neck: No JVD/HJR, no thyromegaly or lymphadenopathy noted. No carotid bruit appreciated Cardiac: [Regular rate and rhythm.] [No murmur rub or gallop.] PMI is nondisplaced. Lungs: [Clear to auscultation without accessory muscle use to assist the respiratory pattern.] Using oxygen intermittently. Abdomen: Soft, bowel sounds normoactive. Nontender and nondistended. No abdominal bruit or thrill noted. No masses noted. Musculoskeletal: Left BKA, right AKA noted. Extremities: No clubbing, cyanosis noted. [ No edema noted.] Upper extremity pulses 2+. Capillary refill less than 3 seconds. Skin: No unusual lesions or rashes. No skin breakdown appreciated. Neuro: Awake, alert and oriented 3. No essential tremor is appreciated. Result/EKG - Labs CBC & BMP: 01/01/17 05:07 01/01/17 05:08 Lab Results: I have reviewed the past 24 hour labs Labs: Laboratory Results - last 24 hr 12/31/16 12/31/16 12/31/16 08:03 11:27 16:55 WBC RBC Hgb Hct MCV MCH MCHC RDW Plt Count MPV Neut % (Auto) Lymph % (Auto) [place] % (Auto) Eos % (Auto) Baso % (Auto) Neut # (Auto) Lymph # (Auto) [place] # (Auto) Eos # (Auto) Baso # (Auto) Immature Gran % Nucleated RBC % Immature Gran # Nucleated RBCs # ESR Westergren Sodium Potassium Chloride Carbon Dioxide Anion Gap BUN Creatinine GFR Calculation BUN/Creatinine Ratio Glucose POC Glucose 145 H 238 H 335 H Calculated Osmolality Uric Acid Calcium C-Reactive Protein 12/31/16 12/31/16 01/01/17 21:13 21:16 05:05 WBC RBC Hgb Hct MCV MCH MCHC RDW Plt Count MPV Neut % (Auto) Lymph % (Auto) [place] % (Auto) Eos % (Auto) Baso % (Auto) Neut # (Auto) Lymph # (Auto) [place] # (Auto) Eos # (Auto) Baso # (Auto) Immature Gran % Nucleated RBC % Immature Gran # Nucleated RBCs # ESR Westergren Sodium Potassium Chloride Carbon Dioxide Anion Gap BUN Creatinine GFR Calculation BUN/Creatinine Ratio Glucose POC Glucose 405 H 391 H Calculated Osmolality Uric Acid 12.9 H Calcium C-Reactive Protein 4.87 H 01/01/17 01/01/17 01/01/17 05:07 05:08 07:20 WBC 6.5 RBC 3.79 L Hgb 10.9 L Hct 34.8 L MCV 91.8 MCH 29 MCHC 31.3 L RDW 15.6 Plt Count 176 MPV 11.8 Neut % (Auto) 65.8 Lymph % (Auto) 17.2 L [place] % (Auto) 11.1 Eos % (Auto) 5.1 Baso % (Auto) 0.5 Neut # (Auto) 4.3 Lymph # (Auto) 1.1 L [place] # (Auto) 0.7 Eos # (Auto) 0.3 Baso # (Auto) 0.0 Immature Gran % 0.3 Nucleated RBC % 0.0 Immature Gran # 0.02 Nucleated RBCs # 0.00 ESR W[place]gren Sodium 139 Potassium 3.8 Chloride 95 L Carbon Dioxide 32 Anion Gap 15.8 H BUN 53 H Creatinine 2.10 H GFR Calculation 38 BUN/Creatinine Ratio 25.00 H Glucose 277 H POC Glucose 270 H Calculated Osmolality 300.5 Uric Acid Calcium 8.6 C-Reactive Protein 01/01/17 01/01/17 07:23 12:03 WBC RBC Hgb Hct MCV MCH MCHC RDW Plt Count MPV Neut % (Auto) Lymph % (Auto) [place] % (Auto) Eos % (Auto) Baso % (Auto) Neut # (Auto) Lymph # (Auto) [place] # (Auto) Eos # (Auto) Baso # (Auto) Immature Gran % Nucleated RBC % Immature Gran # Nucleated RBCs # ESR Westergren 72 H Sodium Potassium Chloride Carbon Dioxide Anion Gap BUN Creatinine GFR Calculation BUN/Creatinine Ratio Glucose POC Glucose 391 H Calculated Osmolality Uric Acid Calcium C-Reactive Protein - Diagnostic Findings Procedure: Chest x-ray: report reviewed by me - EKG EKG results: interpreted by me EKG shows: sinus rhythm Quality Measures - Stroke Onset of Symptoms Date: 12/22/16 Symptom Onset Unknown: No
--- NOTE | 2017-01-01 16:44 | Hospitalist Progress Note ---
Assessment and Plan - Time spent with patient Time spent with patient: Greater than 30 minutes (1) Slurred speech Status: Acute Assessment and plan: Resolved. Continue medical management. Current Visit: Yes (2) Elevated troponin Status: Chronic Assessment and plan: History of CABG, no complaints of chest pain. Cardiology involved. Current Visit: Yes (3) CAD (coronary artery disease) Status: Chronic Current Visit: Yes (4) Congestive heart failure Status: Acute Assessment and plan: Continue medical management. Current Visit: No (5) Atrial fibrillation Status: Acute Assessment and plan: Continue medical management. Current Visit: Yes (6) Peripheral angiopathy Status: Acute Current Visit: No (7) Deep vein thrombosis (DVT) of brachial vein of left upper extremity Status: Acute Assessment and plan: Continue Elquis. Current Visit: Yes (8) Effusion, left elbow Status: Acute Assessment and plan: Appreciate evaluation by orthopedics. Current Visit: Yes Hospitalist: Subjective Interval history: No complaints. Patient is doing fine he was evaluated by orthopedics regarding his left elbow effusion. Exam - Constitutional Vitals: Period Temp Pulse Resp BP Sys/Mendez Pulse Ox Last 24 Hr 96.2 F-98.7 F 62-79 18-20 120-137/53-64 94-98 General appearance: no acute distress - Head Head exam: Present: normocephalic, atraumatic - Eye Eye exam: Present: EOMI Pupils: Present: ROGER - ENT ENT exam: Present: normal exam - Neck Neck exam: Present: normal inspection - Respiratory Respiratory exam: Present: clear to auscultation bilaterally. Absent: rhonchi, wheezes - Cardiovascular Cardiovascular exam: Present: regular rate and rhythm. Absent: gallop, rubs, systolic murmur - GI/Abdominal GI/Abdominal exam: Present: normal bowel sounds, soft. Absent: distended, firm , guarding, tenderness, rebound - Extremities Exam Extremities exam: Present: other (Bilateral AKA. Left elbow is with an Jim wrapping.). Absent: calf tenderness, edema Results - Labs CBC & BMP: 01/01/17 05:07 01/01/17 05:08 Lab Results: I have reviewed the past 24 hour labs Quality Measures - Stroke Onset of Symptoms Date: 12/22/16 Symptom Onset Unknown: No
[2017-01-01] MEDS: METOPROLOL SUCCINATE XL 100 MG TABLET PO SCH (20:37)
[2017-01-02] MEDS: INSULIN REGULAR 100 UNIT/ML SUBCUT SCH ×2 (09:23→12:49)
[2017-01-02] MEDS: FUROSEMIDE 80 MG TABLET PO SCH (09:23)
[2017-01-02] MEDS: MAGNESIUM OXIDE 400 MG TABLET PO SCH (09:23)
[2017-01-02] MEDS: POTASSIUM CHLORIDE 20 MEQ TABLET PO SCH (09:24)
[2017-01-02] MEDS: GABAPENTIN 600 MG TABLET PO SCH (09:24)
[2017-01-02] MEDS: CETIRIZINE 10 MG TABLET PO SCH (09:24)
[2017-01-02] MEDS: ASPIRIN EC 81 MG TABLET PO SCH (09:24)
[2017-01-02] MEDS: amLODIPine 5 MG TABLET PO SCH (09:24)
[2017-01-02] MEDS: PANTOPRAZOLE 40 MG TABLET PO SCH (09:24)
[2017-01-02] MEDS: APIXABAN 5 MG TABLET PO SCH (09:24)
[2017-01-02] MEDS: OMEGA 3 ACID ETHYL ESTERS 1 GM CAPSULE PO SCH (09:24)
--- NOTE | 2017-01-02 10:21 | Orthopedic Progress Note ---
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 The steroid dose ran his sugars into the 500s. Elbow swelling significantly decreased. Much less painful with motion and less tender. Urate level significantly elevated. Also elevated crp and esr. Imp: Gout attack Plan: No procedure warranted. I'm going to defer medical management of his gout to the hospitalist service. Reconsult if problems. Exam - Constitutional Vitals: Period Temp Pulse Resp BP Sys/Mendez Pulse Ox Last 24 Hr 96.2 F-97.6 F 61-70 18-18 111-137/56-82 90-99 Results - Labs CBC & BMP: 01/01/17 05:07 01/01/17 16:49 Quality Measures - Stroke Onset of Symptoms Date: 12/22/16 Symptom Onset Unknown: No
--- NOTE | 2017-01-02 11:18 | Cardiology Progress Note ---
Assessment and Plan - Time spent with patient Time spent with patient: Greater than 30 minutes (1) Ischemic cardiomyopathy Status: Chronic Assessment and plan: See plan of care listed below Current Visit: Yes (2) ICD (implantable cardioverter-defibrillator) in place Status: Chronic Assessment and plan: See plan of care listed below Current Visit: Yes (3) Hypertension Status: Chronic Assessment and plan: See plan of care listed below Current Visit: Yes (4) Dyslipidemia Status: Chronic Assessment and plan: See plan of care listed below Current Visit: Yes (5) Debilitated patient Status: Chronic Assessment and plan: See plan of care listed below Current Visit: Yes (6) Risk for falls Status: Chronic Assessment and plan: See plan of care listed below Current Visit: Yes (7) Right carotid bruit Status: Chronic Assessment and plan: See plan of care listed below Current Visit: Yes (8) Peripheral vascular disease Status: Chronic Assessment and plan: See plan of care listed below Current Visit: Yes (9) Acute renal failure superimposed on stage 3 chronic kidney disease Status: Chronic Assessment and plan: See plan of care listed below Current Visit: No (10) Diabetes mellitus Status: Chronic Assessment and plan: See plan of care listed below Current Visit: No Qualifiers: Diabetes mellitus type: type 2 Diabetes mellitus complication detail: with other circulatory complications Qualified Code(s): E11.59 - Type 2 diabetes mellitus with other circulatory complications (11) Elevated liver enzymes Status: Chronic Assessment and plan: See plan of care listed below Current Visit: No (12) Peripheral vascular disease Status: Chronic Assessment and plan: See plan of care listed below Current Visit: Yes (13) Elevated troponin Status: Chronic Assessment and plan: See plan of care listed below Current Visit: Yes (14) CAD (coronary artery disease) Status: Chronic Assessment and plan: See plan of care listed below Current Visit: Yes Cardiology - PN: Subj Interval history: Mr. Mayorga is a 81 year old male routinely followed by Dr. Aggarwal. Was last seen in his cardiology clinic September 2016 and follows up routinely every six months per his . Risk factors include: age, known coronary artery disease (status post CABG 1998 Dr. Trivedi), hypertension, dyslipidemia, diabetes, peripheral vascular disease (status post left carotid endarterectomy, bilateral amputee), history of ICD implantation (previous EFs 15% - 30%), CHF, atrial fibrillation ( Eliquis for stroke prevention), chronic renal insufficiency. Patient was brought to the emergency department at [facility] December 27, 2016 after being evaluated by his home health nurse practitioner who is concerned he may have had a stroke. He underwent CT which did not show any acute intracranial process, no evidence of stroke. Unable to undergo MRI. He has a history of DVT left brachial vein. He underwent venous ultrasound which confirmed chronic DVT. He is being treated with Eliquis. Basically, he is here also for general malaise. Cardiology was consulted for concern of elevated troponin. Patient's troponin is chronically elevated and he has denied chest pain, heaviness or tightness. , at the bedside, agrees with this. The patient and family have expressed the desire for no invasive work-up of his cardiac condition at this time. Over the weekend, patient made improvements. He is awake and pleasant. His is at the bedside and has a left his bedside since hospitalized. She takes very good care of him at home. He denies chest pain, heaviness or tightness. At this point, from cardiology standpoint, he is stable. We will sign off. I have encouraged him to keep his appointment with Dr. Aggarwal, his food service counter clerk. ASSESSMENT/PLAN: 1. ELEVATED TROPONIN -chronic elevation of troponin. This is not a myocardial infarction. Medical management status. At this point, we will sign off and follow along only if reconsulted. 2. KNOWN CAD S/P CABG - continue current plan of care. 3. HYPERTENSION -holding BINDU inhibitor due to fear of worsening renal insufficiency. Continue on beta-radha. 4. DYSLIPIDEMIA -Avoiding lipid lowering agent due to elevated LFTs. 5. PVD -continue aspirin 6. ELEVATED LIVER ENZYMES -holding cholesterol lowering agent. 7. ACUTE ON CHRONIC RENAL INSUFFICIENCY (STAGE III) -continue current plan of care. 8. CHRONIC LEFT BRACHIAL DVT -Eliquis for history of left brachial DVT. 9. ATRIAL FIBRILLATION -Eliquis for stroke prevention 10. DEBILITATION - his is doing a very good job of taking care of him at home. Uses overhead trapeze bar. 11. FATIGUE - Improved. 12. ISCHEMIC CARDIOMYOPATHY - unchanged. Severely reduced LVEF. Continue current plan of care. 13. RIGHT CAROTID BRUIT - see carotid US report. 14. FALLS RISK - Protocol to prevent falls in place Exam (Progress Note) - Constitutional Vitals: Period Temp Pulse Resp BP Sys/Mendez Pulse Ox Last 24 Hr 96.2 F-97.6 F 61-70 17-18 111-137/56-82 90-99 Exam: General: [Appears well with no apparent distress.] [Pleasant and cooperative. ] [Appears comfortable.] HEENT: [Bilateral arcus noted, normocephalic, atraumatic. Mucous membranes moist. No jaundice noted. Conjunctiva moist and clear, sclerae anicteric] Neck: No JVD/HJR, no thyromegaly or lymphadenopathy noted. No carotid bruit appreciated Cardiac: [Regular rate and rhythm.] [No murmur rub or gallop.] PMI is nondisplaced. Lungs: [Clear to auscultation without accessory muscle use to assist the respiratory pattern.] Using oxygen intermittently. Abdomen: Soft, bowel sounds normoactive. Nontender and nondistended. No abdominal bruit or thrill noted. No masses noted. Musculoskeletal: Left BKA, right AKA noted. Extremities: No clubbing, cyanosis noted. [ No edema noted.] Upper extremity pulses 2+. Capillary refill less than 3 seconds. Skin: No unusual lesions or rashes. No skin breakdown appreciated. Neuro: Awake, alert and oriented 3. No essential tremor is appreciated. Result/EKG - Labs CBC & BMP: 01/01/17 05:07 01/01/17 16:49 Lab Results: I have reviewed the past 24 hour labs Labs: Laboratory Results - last 24 hr 01/01/17 01/01/17 01/01/17 12:03 16:27 16:49 Glucose 560 H* POC Glucose 391 H > 500 H* 01/01/17 01/02/17 01/02/17 21:00 05:09 07:12 Glucose POC Glucose 489 H 305 H 274 H - EKG EKG results: interpreted by me EKG shows: sinus rhythm Quality Measures - Stroke Onset of Symptoms Date: 12/22/16 Symptom Onset Unknown: No
[2017-01-02 11:38] VITALS: BP 108/54
--- NOTE | 2017-01-02 13:50 | Discharge Summary ---
Hospital Course - Hospital Course Hospital Course: Mr. Mayorga presented with complaints of slurred speech and left elbow swelling. Slurred speech resolved by admission. CT of the head was unremarkable for acute changes. Unable to obtain an MRI due to his pacemaker. Carotid ultrasound revealed moderate to severe disease bilaterally. Unable to assess with a CT or MRI due to his kidney dysfunction. Echocardiogram revealed ejection fraction of 25-30%. Cardiology was consulted. Patient had a left upper extremity ultrasound that revealed a clot in his brachial vein that is seen also on ultrasound since November 2015. Patient will continue Eliquis for treatment of this clot and atrial fibrillation. Of note his liver enzymes are mildly elevated and and atorvastatin was discontinued. Left elbow revealed an effusion which was evaluated by orthopedics and deemed to be secondary to gout and osteoarthritis. Due to the patient's significant debility and fall risk, social work was asked to evaluate for placement at a fpc facility. - Time spent with patient Time with patient DS: Greater than 30 minutes Diagnosis - Discharge Diagnosis (1) Slurred speech Status: Acute (2) Elevated troponin Status: Chronic (3) CAD (coronary artery disease) Status: Chronic (4) Congestive heart failure Status: Acute (5) Atrial fibrillation Status: Acute (6) Peripheral angiopathy Status: Acute (7) Deep vein thrombosis (DVT) of brachial vein of left upper extremity Status: Acute (8) Effusion, left elbow Status: Acute Discharge Plan - Discharge Data Disposition: Disch/Xfer to [facility] Condition at Discharge: Stable Discharge Diet: advance to your usual diet Activity: resume usual activities as tolerated - Discharge Medications New Allopurinol [Zyloprim] 100 mg PO BID #60 tablet amLODIPine [Norvasc] 5 mg PO DAILY tablet Continue Furosemide Tab [Lasix Tab] 80 mg PO BID DIURETIC Cetirizine HCl [ZyrTEC Cap] 10 mg PO DAILY Aspirin [Ecotrin] 81 mg PO DAILY Insulin Glargine [Lantus] 15 unit SUBCUT BEDTIME Potassium Chloride [K-Tab ER] 20 meq PO DAILY Omeprazole [Prilosec] 20 mg PO DAILY Metoprolol Succinate 100 mg PO BEDTIME Magnesium Oxide 800 mg PO DAILY W/BREAKFAST Magnesium Oxide 420 mg PO BEDTIME Apixaban [Eliquis] 5 mg PO BID #60 tablet Gabapentin Cap/Tab [Neurontin Cap/Tab] 300 mg PO QAM Gabapentin Cap/Tab [Neurontin Cap/Tab] 600 mg PO BEDTIME Cody-3 Fatty Acids [Fish Oil] 1,000 mg PO DAILY Discontinued Enalapril Tab [Vasotec Tab] 5 mg PO BID Atorvastatin [Lipitor] 80 mg PO BEDTIME Albuterol/Ipratropium Neb [Duoneb] 3 ml RESP TX RT Q6H PRN PRN Reason: Shortness Of Breath/Wheezing - Follow Up or Referral - Forms/Instructions Exam - Constitutional Vitals: Period Temp Pulse Resp BP Sys/Mendez Pulse Ox Last 24 Hr 96.2 F-97.7 F 61-70 17-19 108-136/54-82 90-99 General appearance: normal weight, no acute distress - Head Head exam: Present: normal inspection, normocephalic, atraumatic - Eye Eye exam: Present: EOMI Pupils: Present: ROGER - ENT ENT exam: Present: normal exam - Neck Neck exam: Present: normal inspection - Respiratory Respiratory exam: Present: clear to auscultation bilaterally - Cardiovascular Cardiovascular exam: Present: irregular rhythm - GI/Abdominal GI/Abdominal exam: Present: normal bowel sounds - Extremities Exam Extremities exam: Present: other (Bilateral AKA) Discharge Results Labs on day of discharge: Labs from last 24 hours 01/02/17 01/02/17 01/02/17 11:26 07:12 05:09 Glucose POC Glucose 354 H 274 H 305 H 01/01/17 01/01/17 01/01/17 21:00 16:49 16:27 Glucose 560 H* POC Glucose 489 H > 500 H* DS: Provider Date of admission: 12/27/16 19:00 Primary care physician: Charu Baires Attending physician on admission: Nelda Nelson MD Consults: 12/27/16 21:37 Consult to Pharmacy [CONS] Routine Reason for Pharmacy Consult: Adjust Meds Renal Funct 12/28/16 14:24 Consult to Case Mgmt/Social Srvs [CONS] Routine Reason for Case Mgmt/Social Srvs: Other Consult Comment: outpatient or home PT 12/29/16 14:26 Consult to Physical Therapy [CONS] Routine Reason for Physical Therapy: Evaluate and Treat 12/31/16 14:56 Consult to Physician [CONS] Routine Comment: Consulting Provider: Crispin Benton Jr. Consult to Specialist Group: Orthopedic When should Consulting Provider be notified: Now Discharging clinician: Nelda Nelson MD Expected date of discharge: 01/02/17
== END 2017-01-02 15:35 | DRG 65 ==
LOC: EDUNIT# → N.ED 16:08 → N.EDINP 19:00 → N.TELES 19:56
PROVIDERS: ADMIT Internal Medicine; ATTEND Internal Medicine